=== PATIENT | male | born 1945 | race Caucasian/White ===

== ENCOUNTER 2016-04-16 14:57 | Observation (INO) | payer BC, MEDICARE ==
[2016-04-16 15:48] LABS: Hematocrit 45 % (42-52); Hemoglobin 15.4 g/dl (14.0-18.0); Mean Corpuscular HGB Conc 35 g/dl (31-36); Mean Corpuscular Hemoglobin 31 pg (27-31); Mean Corpuscular Volume 88 fL (80-94); Mean Platelet Volume 9 um3 (7.4-10.4); Red Blood Count 5.03 10^6/ul (4.0-5.4); Red Cell Distribution Width 13 % (10.5-15); White Blood Count 6.9 10^3/ul (3.5-10.8)
--- NOTE | 2016-04-16 16:00 | RAD ---
INDICATION: Syncope and confusion CT of the brain dated December 21, 2004 COMPARISON: CT of the brain dated December 21, 2004 TECHNIQUE: Contiguous axial sections of the brain were obtained from the skull base to the vertex without contrast. FINDINGS: The ventricles, cisterns and sulci mild involutional changes appropriate for the patient's age. The jones-white matter differentiation is adequately maintained and there is no sulcal effacement. No significant focal abnormality or mass effect is present. There is no evidence for intracranial hemorrhage. No significant focal osseous abnormality is present. The visualized portion of the paranasal sinuses and mastoid air cells appear clear. Incidental note is made of a large amount of cerumen nearly occluding the left external auditory canal. IMPRESSION: No acute intracranial abnormality.
[2016-04-16 16:06] LABS: Albumin 4.2 g/dL (3.2-5.2); EGFR African American 85.8 (>60); EGFR Non-African American 66.7 (>60); Globulin 2.8 g/dL (2-4); HDL Cholesterol 41.4 mg/dL; Potassium 3.6 mmol/L (3.5-5.0); Total Bilirubin 0.5 mg/dL (0.2-1.0)
--- NOTE | 2016-04-16 16:46 | RAD ---
INDICATION: Weakness COMPARISON: Similar chest x-ray March 22, 2004 TECHNIQUE: Single AP portable view of the chest was obtained. FINDINGS: Image quality is compromised due to the relative inferiority of a portable chest x-ray. The heart and mediastinum exhibit normal size and contour. The lungs are grossly clear. There is no evidence of a large pleural effusion. Visualized bones are normal for the patient's age. IMPRESSION: No radiographic evidence for acute cardiopulmonary abnormality on this portable chest x-ray.
[2016-04-16] MEDS ORDERED: Aspirin TAB* 325 MG PO ONE (17:04)
[2016-04-16] MEDS ORDERED: Iohexol 350* (CONTRAST) 500 ML MDV IV ONE (17:08)
[2016-04-16 17:59] LABS: TSH (Thyroid Stimulating Horm) 0.95 mcIU/mL (0.34-5.60)
[2016-04-16] MEDS ORDERED: Enoxaparin(*) 40 MG/0.4 ML SYR SUBCUT SCH (18:00)
--- NOTE | 2016-04-16 18:42 | RAD ---
CPT II: CPT II Codes: 3100F INDICATION: Altered mental status COMPARISON: Same day CT of the brain without contrast that did not show any acute abnormality TECHNIQUE: A CT angiogram of the head and neck was performed with 80 cc of Omnipaque 300. Contiguous axial sections were obtained from the thoracic inlet through the [place] of [place]. Images were reconstructed in the sagittal, coronal planes and in a 3-D volume rendered format. The distal cervical internal carotid artery diameter is used as the denominater for stenosis measurement. CTA NECK: The common and internal carotid arteries are patent without hemodynamically significant stenosis. Right: Below the carotid bifurcation the right common carotid artery measures 7 mm in luminal diameter. There is coarsely calcified atherosclerosis of the carotid bulb in the inferior most portion of the right internal carotid artery measures 5 mm in luminal diameter. This yields an approximate degree of stenosis of 29%. Left: The mid-level left common carotid artery exhibits eccentric noncalcified atherosclerosis from approximately the T1 level to the C6 level. At its narrowest portion the left internal carotid artery as a luminal diameter of 3 x 5 mm. The left carotid bulb exhibits relative aneurysmal dilatation measuring 1.2 cm in diameter before yielding a comparatively narrowed left internal carotid artery measuring 5 mm. The vertebral arteries are patent without gross abnormality. CTA of the brain: The internal carotid, anterior and middle cerebral arteries appear are patent without high grade stenosis or occlusion. Calcified atherosclerosis is seen at the petrous carotid arteries. The vertebral, basilar and posterior cerebral arteries appear patent without high grade stenosis or occlusion. The left posterior communicating artery appears to be absent. No focal luminal filling defect, aneurysm or vascular malformation is seen. IMPRESSION: 1. Partially calcified atherosclerosis at the left carotid bifurcation yields approximately 29% stenosis. 2. 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 3. No definite occlusions or filling defects are identified in the intracranial arteries.
--- NOTE | 2016-04-17 03:19 | HP ---
HISTORY AND PHYSICAL: DATE OF ADMISSION: 04/16/16 PRIMARY CARE PHYSICIAN: Dr. Bishop CHIEF COMPLAINT: Confusion. HISTORY OF PRESENT ILLNESS: Mr. Ko is a pleasant 71-year-old male with past medical history of asthma, eczema, prostate cancer, status post prostatectomy, who presents to the hospital at the urging of his after a prolonged episode of confusion and forgetfulness. History was obtained from the and the patient. The states initially that the patient's symptoms began around 11 a.m. this morning. They were both at home and he was planning on going to work. As he was leaving the house, he came back into the room and told her on 3 separate occasions that he was leaving to go to work, which she found odd. 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 He tried to read the paper, but was having difficulty with that and he continued to ask where their daughter was in the house, although she does not live with them. The patient states he did not feel "right" when he was driving back from work. After some more questioning at home, the patient's spoke with her family and decided to bring the patient into the hospital for further evaluation. The patient has apparently had short-term memory problems for about a year now, which they both agree has been worsening as of late. She states the patient typically does okay with "dementia testing." The patient has some anxiety, which occasionally can lead to some difficulty speaking, although they cannot recall any clear dysarthria. The patient denies any focal weakness. The patient does not recall much about today and on further questioning, cannot recall much about the past few days, although with prompting, he is able to recall certain details. The patient and his along with the rest of the family just recently returned from a 50th wedding anniversary in [place] [employer]. They returned on the and they state both of them had a "head cold with some congestion and cough " since returning. Apparently, the patient did have a subjective fever on the evening of 04/14/16, which he received some ibuprofen and some cold medicine for , and which seemed to improve the following day. PAST MEDICAL HISTORY: 1. Asthma. 2. Eczema. 3. Prostate cancer. PAST SURGICAL HISTORY: 1. Vasectomy. 2. Prostatectomy. HOME MEDICATIONS: None. ALLERGIES: The patient reports allergies to EGGS, PENICILLIN, and ATORVASTATIN led to some confusion. SOCIAL HISTORY: The patient lives in home with his . They have 7 children. 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 Denies any cigarette use or tobacco use. Has about 2 drinks per day. Denies any illicit drug use. FAMILY HISTORY: Significant for mother with TIA, sister with TIA, another sister with carotid artery disease, 2 brothers with CABG, and another brother with a stroke and a CABG. REVIEW OF SYSTEMS: Some limited diarrhea after coming back from [place]. Otherwise, a 12-point review of systems is negative except for that as noted in the HPI. PHYSICAL EXAMINATION GENERAL: The patient is a pleasant elderly man, lying in bed, in no apparent distress. VITAL SIGNS: On admission, temperature 98.7, heart rate of 72, respiratory rate of 16, O2 saturation 100% on room air, blood pressure 140/68. HEENT: Pupils are equal, round, and reactive to light and accommodation. Anicteric sclerae. Moist mucous membranes. No cervical adenopathy. CARDIOVASCULAR: Regular rate and rhythm. S1 and S2 present. No murmurs, gallops, or rubs. LUNGS: Clear to auscultation bilaterally. No wheezes, rales, or rhonchi. ABDOMEN: Soft, nontender, nondistended. Bowel sounds positive. EXTREMITIES: No cyanosis, clubbing, or edema. NEURO: The patient is alert, oriented to self, place, family, is unable to tell me the month, day of the week or the year. Cranial nerves II through XII are intact. Strength is 5/5 throughout both upper and lower extremities. Sensation is intact and symmetric bilaterally. The patient clearly continues to have some memory issues about his personal medical history along with the events in the past few days. Speech is clear. The patient could only remember 2/3 items in the short- term memory test. LABORATORY DATA/DIAGNOSTIC STUDIES: White blood cell count of 6.9, hematocrit of 45, platelets of 160, INR of 1.07. Sodium 128, potassium 3.6, chloride of 97 , carbon dioxide of 22, BUN of 12, creatinine 1.09, glucose of 103. Lactic acid of 0.8. LFTs within normal limits. Troponin of 0.00. LDL of 172. Noncontrast CT of the brain shows no acute intracranial abnormalities. Chest x - ray, personal review, shows no acute disease. ASSESSMENT AND PLAN: Confusion and memory loss in a 71-year-old male with past medical history of asthma, eczema, prostate cancer, status post prostatectomy, and some progressive short-term memory loss over the past year. 1. Confusion and memory loss. No clear etiology at this point. We will proceed with a stroke workup. I spoke with Neurology who will evaluate the patient tomorrow. We will get a CTA of the head and neck as well as an MRI and echocardiogram. We will recheck a fasting lipid profile in the morning. However, the patient's LDL on this nonfasting is elevated. We can discuss possible statin therapy with him as he has had adverse reactions in the past. We will check B12, ammonia, and a TSH for reversible causes of dementia. I suppose this could possibly be transient global amnesia as well on top of the patient's ongoing short- term memory loss over the past year. We will write him for a full-dose aspirin x1 in the ED and continue on daily 81 mg for now. Urinalysis is pending. 2. DVT prophylaxis. Lovenox subcu. 3. Code status: The patient is a full code. This was discussed with him and his and healthcare proxy, Renate. TIME SPENT: Total time spent on this admission 50 minutes with over half the time spent [id number] with the patient counseling and coordinating care. CC: Dr. Bishop * [id number]/[facility] #: [id number] REJI
[2016-04-17 04:25] LABS: Urine Bacteria Absent (Absent); Urine Bilirubin Negative (Negative); Urine Glucose Negative (Negative); Urine Nitrite Negative (Negative)
[2016-04-17 05:28] LABS: BUN/Creatinine Ratio 10.7 (8-20); Calcium 8.6 mg/dL (8.6-10.3); EGFR Non-African American 59.1 (>60); Potassium 3.5 mmol/L (3.5-5.0)
[2016-04-17 08:18] LABS: HDL Cholesterol 37.7 mg/dL
[2016-04-17] MEDS ORDERED: NS 0.9% 1000 ML* 1,000 ML IV SCH (08:30)
[2016-04-17] MEDS ORDERED: Aspirin Low Dose CHEW TAB* 81 MG PO SCH (09:00)
--- NOTE | 2016-04-17 10:29 | PN ---
Subjective Date of Service: 04/17/16 Interval History: Patient seen this morning after echo. Still seems a bit confused, particularly about the timeline leading up to this hospitalization. Says he had a problem last week with confusion/memory and was treated at this hospital which is incorrect, he later noted that he must be mistaken. Denies headache, fever, chills. Has been eating well. Some difficulty remembering/finding the words for what he had this morning for breakfast. Family History: Unchanged from Admission Social History: Unchanged from Admission Past Medical History: Unchanged from Admission Objective Active Medications: Aspirin (Aspirin Low Dose Tab*) 81 mg PO DAILY ANDREW Enoxaparin Sodium (Lovenox(*)) 40 mg SUBCUT Q24H ANDREW Sodium Chloride (Ns 0.9% 1000 Ml*) 1,000 mls @ 100 mls/hr IV PER RATE [facility] Vital Signs 04/16/16 04/16/16 04/16/16 18:03 19:37 20:00 Temperature 98.1 F 98.2 F Pulse Rate 68 64 Respiratory 16 16 Rate Blood Pressure 130/66 119/60 (mmHg) O2 Sat by Pulse 100 97 97 Oximetry 04/16/16 04/17/16 04/17/16 23:53 04:21 07:19 Temperature 98.8 F 98.3 F 99.0 F Pulse Rate 64 65 63 Respiratory 16 16 18 Rate Blood Pressure 138/73 139/69 113/62 (mmHg) O2 Sat by Pulse 100 99 96 Oximetry Oxygen Devices in Use Now: None Appearance: Elderly, M, sitting up in bed in NAD Eyes: No Scleral Icterus Ears/Nose/Mouth/Throat: Mucous Membranes Moist Neck: NL Appearance and Movements; NL JVP Respiratory: Symmetrical Chest Expansion and Respiratory Effort, Clear to Auscultation Cardiovascular: NL Sounds; No Murmurs; No JVD, RRR Abdominal: NL Sounds; No Tenderness; No Distention Lymphatic: No Cervical Adenopathy Extremities: No Edema Skin: No Rash or Ulcers Neurological: - - Alert, oriented to self and place, difficulty with time, CN II -XII intact, strength 5/5 throughout, sensation intact and symmetric Result Diagrams: 04/16/16 15:30 04/17/16 05:01 Assess/Plan/Problems-Billing Assessment: Confusion, memory impairment, retrograde amnesia in a 71 yo M with hx of asthma , prostate ca s/p prostatectomy - Patient Problems (1) Memory loss Current Visit: Yes Comment: confusion. ?TGA, TIA, dementia. 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 Echo done and pending read. MRI pending. Dr. Mckay to evaluate the patient, may consider EEG. B12, TSH and ammonia all WNL. (2) DVT prophylaxis Current Visit: Yes Comment: Lovenox (3) Full code status Current Visit: Yes
[2016-04-17 11:08] VITALS: BP 118/77
--- NOTE | 2016-04-17 12:35 | ECHO ---
Patient: SHERIDAN RICHARD [facility] Rec#: [id number] : 1945 Date: 04/17/2016 Age: 71y Height: 180.3 cm / 71.0 in Weight: 73 kg / 160.9 lbs Sex: M BSA: 1.92 Room#: [facility] Admit Date#: 04/16/2016 Type: Inpatient Referring: LUIS MARRUFO MD Reading: Agnieszka Zafar MD Certified Registered Nurse Anesthetist: Lolis Meyer RN RDCS CC: Dario Bishop MD Transthoracic Echocardiogram Indication: CVA BP: 138/73 HR: 65 Rhythm: NSR Findings History: Asthma, prostate cancer Technical Comments: The study quality is fair. Completed at 1015. Left Ventricle: The left ventricular chamber size is normal. Global left ventricular wall motion and contractility are within normal limits. There is normal left ventricular systolic function. The estimated ejection fraction is 55-60%. Abnormal left ventricular diastolic function is observed. Left Atrium: The left atrial chamber size is normal. Right Ventricle: The right ventricular chamber size and systolic function are within normal limits. Right Atrium: The right atrial cavity size is normal. Aortic Valve: The aortic valve leaflets are mildly thickened. There is a trace of aortic regurgitation. There is no evidence of aortic stenosis. Mitral Valve: The mitral valve leaflets are mildly thickened. There is trace to mild mitral regurgitation. There is no evidence of mitral stenosis. Tricuspid Valve: The tricuspid valve leaflets are normal. There is trace tricuspid regurgitation. Unable to estimate the right ventricular systolic pressure. Pulmonic Valve: The pulmonic valve structure is not well visualized. There is a trace pulmonic regurgitation. There is no pulmonic stenosis. Pericardium: There is no significant pericardial effusion. A pericardial fat pad is visualized. Aorta: There is no dilatation of the ascending aorta. There is no dilatation of the aortic arch. The aortic root is normal in size. Pulmonary Artery: The main pulmonary artery is not well visualized. Venous: The inferior vena cava appears normal in size. There is a greater than 50% respiratory change in the inferior vena cava dimension. Conclusions Global left ventricular wall motion and contractility are within normal limits. The estimated ejection fraction is 55-60%. The right ventricular chamber size and systolic function are within normal limits. Atria normal in size, no evidence of shunting across the atrial septum on 2D and color evaluation. Aortic valve sclerosis with trace of aortic regurgitation. There is trace to mild mitral regurgitation. There is trace tricuspid regurgitation. Unable to estimate the right ventricular systolic pressure. No cardioembolic source identified. No prior echo to compare. Measurements Name Value Normal Range RVDdMajor (2D) 3 cm (2.2 - 4.4) RAd ISD 4CH 4.8 cm (3.4 - 4.9) RA (A4C)W 3.7 cm (2.9 - 4.6) IVSd (2D) 0.8 cm (0.6 - 1) LVPWd (2D) 1 cm (0.6 - 1) LVIDd (2D) 4.2 cm (3.6 - 5.4) Aortic Annulus 2.2 cm (1.4 - 2.6) Ao root diameter (2D) 3.2 cm (2.1 - 3.5) Ascending Ao 3.3 cm (2.1 - 3.4) Aortic arch 2.6 cm (1.8 - 3.4) LA dimension (AP) 2D 2.6 cm (2.3 - 3.8) LAd ISD 4CH 4 cm (2.9 - 5.3) LA ISD 4CH W 3.9 cm (2.5 - 4.5) Name Value Normal Range LA ESV SP 4CH (A/L) 28 ml - LA ESV SP 2CH (A/L) 33 ml - LA ESV BP (A/L) 33 ml - LA ESV BP (A/L) index 17.2 ml/m2 - LA ESV SP 4CH (MOD) 26 ml - LA ESV SP 2CH (MOD) 29 ml - Name Value Normal Range MV E-wave Vmax 0.6 m/sec - MV deceleration time 346 msec - MV A-wave Vmax 0.71 m/sec - MV E:A ratio 0.84 ratio - LV septal e' Vmax 0.07 m/sec - LV lateral e' Vmax 0.07 m/sec - LV E:e' septal ratio 8.6 ratio - LV E:e' lateral ratio 8.6 ratio - Name Value Normal Range AV Vmax 1.1 m/sec - LVOT Vmax 1 m/sec - MONSE Vmax 0.57 m/sec - Name Value Normal Range IVC diameter 1.9 cm - Name Value Normal Range PV Vmax 0.93 m/sec -
--- NOTE | 2016-04-17 14:55 | RAD ---
Indication: Assess for CVA. Altered mental status. History of cancer. Comparison: Noncontrast CT head April 16, 2016 Technique: Fiixa 1.5 Valentine [id number] with GEM suite. MRI brain without contrast. Report: Diffusion series is negative for acute or subacute ischemia. Susceptibility series is negative for stigmata of hemosiderin deposition to indicate previous hemorrhage. Mild prominence of the cerebral sulci reflecting volume loss corresponding mild prominence of the lateral and third ventricles. Unremarkable fourth ventricle and basal cisterns. Normal variant mildly prominent perivascular spaces at the basal ganglia. A few low suspicion small T2 hyperintensities are noted in the subcortical white matter of the LEFT frontal lobe measuring 3 mm or smaller of doubtful clinical significance. Preserved major intracranial flow-voids. Unremarkable orbital contents. Mucosal thickening with complete opacification of the RIGHT maxillary sinus and partial opacification of the RIGHT ethmoid sinus. Mild mucosal thickening at the hypoplastic LEFT maxillary sinus. Negative for paranasal sinus fluid levels. Grossly clear mastoid air spaces. No suspicious calvarial or skull base lesion evident. IMPRESSION: 1. Mild involutional change. No evidence for acute or subacute ischemia or other acute intracranial process. 2. Paranasal sinus disease with complete opacification of the RIGHT maxillary sinus. Correlate with clinical assessment.
[2016-04-17 16:03] LABS: BUN/Creatinine Ratio 14.4 (8-20); Calcium 8.7 mg/dL (8.6-10.3); EGFR African American 78.3 (>60); EGFR Non-African American 60.9 (>60)
--- NOTE | 2016-04-17 19:18 | CONS ---
CONSULTATION REPORT: DATE OF CONSULTATION/DICTATION: 04/17/15 PATIENT OF: Dr. Bishop and Dr. Jimbo Elam. HISTORY OF PRESENT ILLNESS: This is a 71-year-old man being evaluated for an acute episode of confusion occurring yesterday. He has had a 1-year history of somewhat progressive short-term memory, although he had mental status testing where he tested normal. He has difficulty remembering things and he gets lost if he is in a new restaurant and he goes out a different store than he came in, which is unusual for him since he is both smart and a spatial type of person. Yesterday he had an acute symptom, different from what he had had in the past that began about 11 in the morning. He was going to go to work and he kissed his 3 separate times. He then drove to [place], could not turn on the computer and came back and was confused. He thought his daughter who lives away from them was around. He did not know where the dog was. He had some stuttering. He knew that things were off and that he had trouble driving home in terms of confusion. There was a little slight word finding difficulties, but he did not say any nonsense words and did not misspeak at all. He has had significant anxiety, which has been worse recently. He does not snore. PAST MEDICAL/SURGICAL HISTORY: He has a history of asthma, eczema, and prostate cancer, status post prostatectomy. He also has had a vasectomy. MEDICATIONS: He is on no medicines at home. ALLERGIES: He is allergic to EGGS, PENICILLIN. ATORVASTATIN has led to some confusion in the past. FAMILY HISTORY: He has a strong family history for cardiovascular disease in 4 siblings, but there is no history of dementia in the family. SOCIAL HISTORY: He lives with his . 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 He does not smoke, drink, or use drugs. He has 2 drinks per day. There is mother and sister with TIAs. REVIEW OF SYSTEMS: Negative in all 14 spheres other than the HPI. He has recently travelled to [place]. PHYSICAL EXAM: Temperature 98.9, pulse 61, respiratory rate 18, blood pressure 118/77. He is alert and oriented x3 with normal speech and comprehension. Cranial nerves II through XII were intact. Fundi were benign. Motor exam revealed normal tone, strength, and coordination. Gait and sensation intact to light touch. Reflexes 2 and equal, downgoing toes. Chest: Clear. Cardiovascular: Regular rate and rhythm without murmur. Abdomen: Soft with positive bowel sounds. DIAGNOSTIC STUDIES/LAB DATA: His CT scan showed no acute findings. His CTA showed a 20% to 30% stenosis in his left carotid bifurcation and some atheroma in his left carotid Labs include normal CBC, INR, PTT. Normal CMP, B12, thyroid except he had a sodium of 127 and creatinine of 1.2 today following the CTA. Yesterday his creatinine was 1.09. LDL was 163 fasting. His ammonia was 39. PLAN: I spoke to his at length and also his son-in-law and discussed that his anxiety is probably complicating the situation leading to perhaps some of his confusion by concern that he may have the very beginning of a mild dementia. At this point, I would aggressively treat the anxiety to see if there is indeed some short-term memory problems that are significant that remain after the anxiety is under better control, if so, we may at that point as an outpatient treat with Namenda or Aricept acutely. The issue is what the episode was yesterday. The differential would include TIA, which most likely transient global amnesia is possible but this does not sound typical for that. He was not oblivious to his confusion and expressed concern, which is sort of different for somebody with transient global amnesia, they are unaware that there is a problem. There may have been some stuttering and word finding issues also that would go more along the line of just a regular transient ischemic attack rather than a transient global amnesia. If his MRI scan does not show an acute abnormality that would prove that he had a stroke, then I would also recommend an EEG since it is possible that he had an unwitnessed seizure and was postictal. The whole episode at home lasted 15 or 20 minutes but there was the additional time that he was up at [employer], so it is hard to know how long the whole episode lasted. They agreed with treating with aspirin and statin at this point. Thank you for sharing his case. [id number]/[facility] #: [id number] REJI
--- NOTE | 2016-04-18 07:19 | DS ---
DISCHARGE SUMMARY: DATE OF ADMISSION: 04/16/16 DATE OF DISCHARGE: 04/17/16 PRIMARY CARE PHYSICIAN: Dr. Bishop. PRINCIPAL DISCHARGE DIAGNOSIS: TIA. SECONDARY DIAGNOSES: 1. Hyperlipidemia. 2. History of asthma. 3. History of prostate cancer. STUDIES DONE DURING HOSPITALIZATION: CT of the brain without contrast, impression: No acute intracranial abnormality. Chest x-ray, impression: No radiographic evidence for acute cardiopulmonary abnormality on this portable chest x-ray. MRI of the brain, impression: Mild involutional change. No evidence for acute or subacute ischemia or other intracranial process. Paranasal sinus disease with complete opacification in the right maxillary sinus, correlate with clinical assessment. CTA of the head and neck, impression: Partially calcified atherosclerosis at the left carotid bifurcation yields approximately 29% stenosis, long segment non - calcified atheroma of the left common carotid, narrows the lumen to a small as 3 mm in diameter. Above this there is relative aneurysmal dilatation of the carotid bulb measuring 1.2 cm in diameter, which could represent post-stenotic dilatation. No definite occlusions or filling defects are identified in the intracranial arteries. Echocardiogram, conclusions: Global left ventricular wall motion and contractility within normal limits. Ejection fraction of 55% to 60%. The right ventricular chamber size and systolic function are within normal limits. Atria normal in size. No evidence of shunting across the atrial septum. On 2-D and color evaluation, aortic valve sclerosis with trace aortic regurgitation. Trace to mild mitral regurgitation. Trace tricuspid regurgitation. Unable to estimate right ventricular systolic pressure. No cardioembolic source identified. No prior echo to compare. DISCHARGE MEDICATION REGIMEN: 1. Aspirin 81 mg by mouth daily. 2. Pravastatin 40 mg by mouth daily. 3. Cholecalciferol 1000 units by mouth daily. HISTORY OF PRESENT ILLNESS AND HOSPITAL SUMMARY: Please see my history and physical from 04/16/16 for full details. Briefly, Mr. Ko is a pleasant 71- year- old male with past medical history as above, who presented to the hospital with an episode of confusion and forgetfulness. This began around 11 a.m. the day of admission, and the patient was confused, asked the repetitive questions, was asking nonsensical questions, and perhaps having some difficulty reading the paper. This is in the setting of what seemed like more of a chronic short-term memory loss problem that the patient has been having. As noted above, CT of the head was negative. CTA of the head and neck did not show anything that is likely contributing to this presentation. MRI was largely negative aside from some small vessel disease. An EEG was also done, which has not been read at the time of this dictation, but I spoke with Dr. Mckay who read the EEG and he said it was normal. Echocardiogram also was within normal limits. It is felt that this could possibly be a TIA. The patient was started on the baby aspirin as he has had problems with Lipitor in the past. He was started on pravastatin. He will follow up with Dr. Mckay as well as his PCP, Dr. Bishop. At discharge, the patient is still slightly forgetful, however not nearly to the degree that he was having in the morning the day of admission. TIME SPENT: Total time spent on this discharge, 45 minutes. This is a summary of the hospitalization, please see the full medical record for further details. CC: Dr. Bishop; Dr. Mckay* [id number]/CPS #: [id number] MTDD
--- NOTE | 2016-04-18 14:10 | ED ---
Tamia Brooks Adam, scribed for Kwame Gonzalez MD on 04/16/16 at 1526 . Altered Mental Status - HPI Summary HPI Summary: A 71 y/o male presents to the ED with a one hour period of confusion two hours ago. Per , patient has been having increased confusion and memory loss over the past several days and has been evaluated for dementia in the past. He denies any SOB or chest pain currently. There is a FHx of TIAs. - History Of Current Complaint Chief Complaint: EDAltMentalStatus Stated Complaint: SYNCOPE Hx Obtained From: Patient, Family/Stream Control Officer - Onset/Duration: Resolved Timing: Intermittent - Resolved currently, Lasting Hours - One hour Severity Initially: Moderate Severity Currently: Mild Character: Confusion Aggravating Factor(s): Nothing Alleviating Factor(s): Other - Spontaneous resolution Associated Signs And Symptoms: Positive: Negative - Allergies/Home Medications Allergies/Adverse Reactions: Allergies Allergy/AdvReac Type Severity Reaction Status Date / Time Atorvastatin Allergy Altered Verified 04/16/16 17:13 Mental Status Eggs or Egg-derived Products Allergy Unknown Verified 07/17/13 10:21 Reaction Details Penicillins Allergy Hives Verified 04/16/16 17:13 PMH/Surg Hx/FS Hx/Imm Hx Infectious Disease History: Denies: Traveled Outside the [place] in Last 30 Days - Family History Known Family History: Positive: Cardiac Disease, Other - TIA, hypotension - Social History Occupation: Employed Part-time Lives: With Family Review of Systems Constitutional: Negative Negative: Fever, Chills Eyes: Negative Negative: Erythema ENT: Negative Negative: Sore Throat Cardiovascular: Negative Negative: Chest Pain Respiratory: Negative Negative: Shortness Of Breath, Cough Gastrointestinal: Negative Negative: Abdominal Pain, Vomiting, Nausea Genitourinary: Negative Negative: dysuria, hematuria Musculoskeletal: Negative Negative: Myalgia, Edema Skin: Negative Negative: Rash Neurological: Other - Confusion. negative: dizziness Psychological: Normal All Other Systems Reviewed And Are Negative: Yes Physical Exam - Summary Physical Exam Summary: NORMAL NEURO EXAM ADULT Constitutional: Well-developed, Well-nourished, Alert. (-) Distressed Skin: Warm, Dry HENT: Eyes: Conjunctiva normal Neck: Musculoskeletal ROM normal neck. (-) JVD, (-) Stridor, (-) Tracheal deviation Cardio: Rhythm regular, rate normal, Heart sounds normal; Intact distal pulses ; The pedal pulses are 2+ and symmetric. Radial pulses are 2+ and symmetric. (- ) Murmur Pulmonary/Chest wall: Effort normal. (-) Respiratory distress, (-) Wheezes, (-) Rales Abd: Soft. (-) Tenderness, (-) Distension, (-) Guarding, (-) Rebound Musculoskeletal: (-) Edema Lymph: (-) Cervical adenopathy Neuro: Alert, Oriented x3, Strength normal, Cranial nerves II-XII are grossly intact. (-) Dysmetria, (-) Nystagmus, (-) Ataxia by finger to nose testing, (-) Sensory deficit. No pronator drift, speech fluent/clear Psych: Mood and affect Normal Vital Signs On Initial Exam: Initial Vitals Temp Pulse Resp BP Pulse Ox 98.7 F 72 16 140/68 100 04/16/16 14:59 04/16/16 14:59 04/16/16 14:59 04/16/16 14:59 04/16/16 14:59 Diagnostics - Vital Signs Vital Signs Temp Pulse Resp BP Pulse Ox 04/16/16 14:59 98.7 F 72 16 140/68 100 - Laboratory Lab Results: Lab Results 04/16/16 04/16/16 04/16/16 Range/Units 15:30 15:30 15:30 WBC 6.9 (3.5-10.8) 10^3/ul RBC 5.03 (4.0-5.4) 10^6/ul Hgb 15.4 (14.0-18.0) g/dl Hct 45 (42-52) % MCV 88 (80-94) fL MCH 31 (27-31) pg MCHC 35 (31-36) g/dl RDW 13 (10.5-15) % Plt Count 160 (150-450) 10^3/ul MPV 9 (7.4-10.4) um3 Neut % (Auto) 70.9 (38-83) % Lymph % (Auto) 15.5 L (25-47) % [place] % (Auto) 12.4 H (1-9) % Eos % (Auto) 0 (0-6) % Baso % (Auto) 1.2 (0-2) % Absolute Neuts (auto) 4.9 (1.5-7.7) 10^3/ul Absolute Lymphs (auto) 1.1 (1.0-4.8) 10^3/ul Absolute Monos (auto) 0.9 H (0-0.8) 10^3/ul Absolute Eos (auto) 0 (0-0.6) 10^3/ul Absolute Basos (auto) 0.1 (0-0.2) 10^3/ul Absolute Nucleated RBC 0 10^3/ul Nucleated RBC % 0 INR (Anticoag Therapy) 1.07 (0.89-1.11) APTT 33.6 (26.0-36.3) seconds Sodium 128 L (133-145) mmol/L Potassium 3.6 (3.5-5.0) mmol/L Chloride 97 L (101-111) mmol/L Carbon Dioxide 22 (22-32) mmol/L Anion Gap 9 (2-11) mmol/L BUN 12 (6-24) mg/dL Creatinine 1.09 (0.67-1.17) mg/dL Est GFR ( Amer) 85.8 (>60) Est GFR (Non-Af Amer) 66.7 (>60) BUN/Creatinine Ratio 11.0 (8-20) Glucose 103 H (70-100) mg/dL Lactic Acid (0.5-2.0) mmol/L Calcium 9.0 (8.6-10.3) mg/dL Total Bilirubin 0.50 (0.2-1.0) mg/dL AST 39 (13-39) U/L ALT 19 (7-52) U/L Alkaline Phosphatase 50 (34-104) U/L Troponin I 0.00 (<0.04) ng/mL Total Protein 7.0 (6.4-8.9) g/dL Albumin 4.2 (3.2-5.2) g/dL Globulin 2.8 (2-4) g/dL Albumin/Globulin Ratio 1.5 (1-3) Triglycerides 93 mg/dL Cholesterol 232 mg/dL LDL Cholesterol 172 mg/dL HDL Cholesterol 41.4 mg/dL Vitamin B12 329 (180-914) pg/mL TSH 0.95 (0.34-5.60) mcIU/mL Blood Type Antibody Screen 04/16/16 04/16/16 Range/Units 15:30 15:30 WBC (3.5-10.8) 10^3/ul RBC (4.0-5.4) 10^6/ul Hgb (14.0-18.0) g/dl Hct (42-52) % MCV (80-94) fL MCH (27-31) pg MCHC (31-36) g/dl RDW (10.5-15) % Plt Count (150-450) 10^3/ul MPV (7.4-10.4) um3 Neut % (Auto) (38-83) % Lymph % (Auto) (25-47) % Massac % (Auto) (1-9) % Eos % (Auto) (0-6) % Baso % (Auto) (0-2) % Absolute Neuts (auto) (1.5-7.7) 10^3/ul Absolute Lymphs (auto) (1.0-4.8) 10^3/ul Absolute Monos (auto) (0-0.8) 10^3/ul Absolute Eos (auto) (0-0.6) 10^3/ul Absolute Basos (auto) (0-0.2) 10^3/ul Absolute Nucleated RBC 10^3/ul Nucleated RBC % INR (Anticoag Therapy) (0.89-1.11) APTT (26.0-36.3) seconds Sodium (133-145) mmol/L Potassium (3.5-5.0) mmol/L Chloride (101-111) mmol/L Carbon Dioxide (22-32) mmol/L Anion Gap (2-11) mmol/L BUN (6-24) mg/dL Creatinine (0.67-1.17) mg/dL Est GFR ( Amer) (>60) Est GFR (Non-Af Amer) (>60) BUN/Creatinine Ratio (8-20) Glucose (70-100) mg/dL Lactic Acid 0.8 (0.5-2.0) mmol/L Calcium (8.6-10.3) mg/dL Total Bilirubin (0.2-1.0) mg/dL AST (13-39) U/L ALT (7-52) U/L Alkaline Phosphatase (34-104) U/L Troponin I (<0.04) ng/mL Total Protein (6.4-8.9) g/dL Albumin (3.2-5.2) g/dL Globulin (2-4) g/dL Albumin/Globulin Ratio (1-3) Triglycerides mg/dL Cholesterol mg/dL LDL Cholesterol mg/dL HDL Cholesterol mg/dL Vitamin B12 (180-914) pg/mL TSH (0.34-5.60) mcIU/mL Blood Type O Positive Antibody Screen Negative Result Diagrams: 04/16/16 15:30 04/17/16 15:40 Lab Statement: Any lab studies that have been ordered have been reviewed, and results considered in the medical decision making process. - CT Brain CT Interpretation: No Acute Changes CT Interpretation Completed By: Radiologist Altered Mental Statu Course/Dx - Course Course Of Treatment: Intention to admit for rule out TIA. Pending labs and imaging. Dr. Elam aware of patient. Assessment/Plan: tia vs dementia - Diagnoses Discharge Diagnoses: TIA (transient ischemic attack) Discharge - Discharge Plan Condition: Good Disposition: ADMITTED TO [facility] Disposition Comment: Signed out to Dr. Alvarado - pending labs and brain CT The documentation as recorded by the Tamia petit Adam accurately reflects the service I personally performed and the decisions made by , Kwame Gonzalez MD.
--- NOTE | 2016-04-21 09:40 | EEG ---
ELECTROENCEPHALOGRAPHY: DATE: 04/20/2016. PATIENT OF: Dr. Bishop.* CLINICAL PROBLEM: This is a 71-year-old man being evaluated for an episode of confusion. This study was done to evaluate seizures. MEDICINES: None listed. REPORT: With the patient awake, background cerebral activity consisted of moderate amplitude, posterior dominant, 8-9 Hz rhythm. Photic stimulation does not activate the record. The patient never falls asleep. No epileptiform potentials, focal abnormalities or major asymmetries of background are noted. CLINICAL IMPRESSION: This awake EEG is within normal limits. [id number]/CPS #: [id number] [facility]
== END 2016-04-17 15:28 | disposition home or self-care (01) ==
LOC: ED 14:57 → MEDTELE 16:00
PROVIDERS: ADMIT Hospitalist; ATTEND Hospitalist
DX: G45.9 Transient cerebral ischemic attack, unspecified (principal); E78.5 Hyperlipidemia, unspecified; Z85.46 Personal history of malignant neoplasm of prostate; J45.909 Unspecified asthma, uncomplicated; Z88.0 Allergy status to penicillin; R41.3 Other amnesia
CPT/HCPCS: 36415; 70450; 70496; 70498; 70551; 71010; 80048; 80053; 80061; 81003; 81015; 82140; 82607; 83605; 84443; 84484; 85025; 85610; 85730; 86850; 86900; 86901; 93005; 93306; 95819; 96372; 99284; A9270-GY; G0378; J1650; Q9967

== ENCOUNTER 2017-04-25 15:36 | Observation (INO) | payer MEDICARE, BC ==
--- NOTE | 2017-04-25 16:31 | RAD ---
INDICATION: Confusion COMPARISON: MRI brain April 17, 2016; CT brain April 16, 2016 TECHNIQUE: Noncontrast axial source images were acquired from the skull base to the vertex. FINDINGS: Ventricles/sulci: There is mild age-related cortical atrophy with compensatory dilatation of the CSF spaces. Brain parenchyma: There is no focal parenchymal finding, evidence of intracranial mass, or intracranial mass effect. Intracranial hemorrhage:None. Extra-axial spaces: There are no abnormal extra axial fluid collections or evidence of extra-axial mass. Calvarium: There is no calvarial fracture or other calvarial abnormality. Scalp: There is no evidence of scalp or extracalvarial soft tissue abnormality. 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 Other: None. IMPRESSION: No acute intracranial findings. Right-sided sinusitis, unchanged
[2017-04-25 16:57] LABS: ABS Basophils 0.1 10^3/ul (0-0.2); ABS Eosinophils 0.1 10^3/ul (0-0.6); ABS Lymphocytes 1.6 10^3/ul (1.0-4.8); ABS Monocytes 0.6 10^3/ul (0-0.8); ABS Neutrophils 8.8 10^3/ul (1.5-7.7); ABS Nucleated RBC 0 10^3/ul; Hematocrit 45 % (42-52); Hemoglobin 15.5 g/dl (14.0-18.0); Lymphocyte % 14.1 % (25-47); Mean Corpuscular HGB Conc 34 g/dl (31-36); Mean Corpuscular Hemoglobin 31 pg (27-31); Mean Corpuscular Volume 90 fL (80-94); Mean Platelet Volume 9 um3 (7.4-10.4); Nucleated Red Blood Cells % 0.1; Platelet Count 228 10^3/ul (150-450); Red Blood Count 5.01 10^6/ul (4.0-5.4); Red Cell Distribution Width 13 % (10.5-15); White Blood Count 11.2 10^3/ul (3.5-10.8)
--- NOTE | 2017-04-25 17:03 | RAD ---
INDICATION: Confusion COMPARISON: April 16, 2016 TECHNIQUE: An AP portable view obtained at 1628 hours is submitted. FINDINGS: Bones/Soft Tissues: There are no acute bony findings. Cardiomediastinal: The cardiomediastinal silhouette is normal. Lungs: There are no infiltrates. Pleura: There are no pleural effusions. Other: None IMPRESSION: NO ACTIVE DISEASE
[2017-04-25 17:13] LABS: EGFR Non-African American 64.4 (>60)
[2017-04-25] MEDS ORDERED: NS 0.9% 1000 ML* 1,000 ML IV ONE (17:40)
--- NOTE | 2017-04-25 18:15 | ED ---
Berta Brooks Gabriel, scribed for Maikel Wagner MD on 04/25/17 at 1555 . Neurological HPI - HPI Summary HPI Summary: This patient is a 72 year old M presenting to [facility] accompanied by his daughter with a chief complaint of a possible CVA at 12:30. Patient denies double vision , numbness, and tingling. Patient states he went to the hospital (meant dentist ) to get his teeth cleaned but does not recall the procedure. He is aware of his confusion and says he found himself wandering around. His daughter recalls the call she got from the dentist who said that the patient said he didnt feel well at the end of his teeth cleaning and was later seen wandering outside the office till 1530. The patient is currently confused but ambulates without difficulty. Pt has history of forgetfulness. - History of Current Complaint Chief Complaint: EDNeurologicalDeficit Stated Complaint: STROKE-LIKE SYMPTOMS Last Known Well Date: 04/25/17 12:30 Hx Obtained From: Patient Onset/Duration: Gradual Onset, Still Present Timing: Constant Onset Severity: Mild Current Severity: Mild Pain Intensity: 0 Pain Scale Used: 0-10 Numeric Character: Confusion - Allergy/Home Medications Allergies/Adverse Reactions: Allergies Allergy/AdvReac Type Severity Reaction Status Date / Time Atorvastatin Allergy Altered Verified 04/16/16 17:13 Mental Status Eggs or Egg-derived Products Allergy Unknown Verified 07/17/13 10:21 Reaction Details Penicillins Allergy Hives Verified 04/16/16 17:13 Home Medications: Home Medications Escitalopram (NF) [Lexapro 20 mg (NF)] 20 mg PO DAILY 04/25/17 [History Confirmed 04/25/17] Memantine XR CAP* [Namenda XR CAP*] 28 mg PO DAILY 04/25/17 [History Confirmed 04/25/17] PMH/Surg Hx/FS Hx/Imm Hx Cardiovascular History: Reports: Hx Hypercholesterolemia Denies: Hx Pacemaker/ICD GI History: Reports: Other GI Disorders - rectal bleeding, colonoscopy Sensory History: Reports: Hx Contacts or Glasses, Hx Hearing Problem Denies: Hx Hearing Aid Opthamlomology History: Reports: Hx Contacts or Glasses Neurological History: Reports: Other Neuro Impairments/Disorders - forgetfulness Psychiatric History: Reports: Hx Anxiety Denies: Hx Panic Disorder - Cancer History Cancer Type, Location and Year: prostate cancer - Surgical History Surgery Procedure, Year, and Place: colonoscopy, prostate removal, R arm artery and nerve repair Hx Anesthesia Reactions: No Infectious Disease History: No Infectious Disease History: Denies: Traveled Outside the [place] in Last 30 Days - Family History Known Family History: Positive: Cardiac Disease, Other - TIA, hypotension - Social History Occupation: Retired Alcohol Use: Daily Alcohol Amount: 1 glass of wine and 1gin and tonic daily Substance Use Type: Reports: None Smoking Status (MU): Never Smoked Tobacco Review of Systems Negative: Blurred Vision Neurological: Negative - numbness, tingling Positive: Other - confusion All Other Systems Reviewed And Are Negative: Yes Physical Exam Triage Information Reviewed: Yes Vital Signs On Initial Exam: Initial Vitals Temp Pulse Resp BP Pulse Ox 97.2 F 65 19 150/93 100 04/25/17 15:37 04/25/17 15:37 04/25/17 15:37 04/25/17 15:37 04/25/17 15:37 Vital Signs Reviewed: Yes Appearance: Positive: Well-Appearing, No Pain Distress Skin: Positive: Warm Eyes: Positive: EOMI ENT: Positive: Normal ENT inspection Neck: Positive: Nontender Respiratory/Lung Sounds: Positive: Clear to Auscultation, Breath Sounds Present Cardiovascular: Positive: RRR. Negative: Murmur Abdomen Description: Positive: Nontender Neurological: Positive: Sensory/Motor Intact, Alert, Oriented to Person Place, Time, CN Intact II-III, Normal Gait, Speech Normal Psychiatric: Positive: Normal - Victor Coma Scale Best Eye Response: 4 - Spontaneous Best Motor Response: 6 - Obeys Commands Best Verbal Response: 5 - Oriented Diagnostics - Vital Signs Vital Signs Temp Pulse Resp BP Pulse Ox 04/25/17 15:37 97.2 F 65 19 150/93 100 - Laboratory Result Diagrams: 04/25/17 16:30 04/25/17 16:30 Lab Statement: Any lab studies that have been ordered have been reviewed, and results considered in the medical decision making process. - Radiology CXR Radiology Interpretation Completed By: Radiologist - No acute disease. ED physician has reviewed this report. - CT CT brain CT Interpretation Completed By: Radiologist - No acute intracranial findings. Right-sided sinusitis, unchanged. ED physician has reviewed this report. - EKG 16:01 Cardiac Rate: NL EKG Rhythm: Sinus Rhythm - at 66 BPM EKG Interpretation: No STEMI EKG Comparison: No Significant Change - in comparison to EKG from 04/16/16 NIH Scale - NIH Scale Level of Consciousness: Alert/Keenly Responsive Ask Patient the Month and His/Her Age: One Correct/Not Aphasic Ask Pt to Open/Close Eyes and Manager Practice/Release Non-Paretic Hand: Both Correctly Best Gaze (Only Horizontal Eye Movement): Normal Visual Field Testing: No Visual Loss Facial Paresis-Pt to Smile & Close Eyes or Grimace Symmetry: Normal/Symmetrical Motor Function - Right Arm: No Drift-Holds 10 Seconds Motor Function - Left Arm: No Drift-Holds 10 Seconds Motor Function - Right Leg: No Drift-Holds 10 Seconds Motor Function - Left Leg: No Drift-Holds 10 Seconds Limb Ataxia-Must be out of Proportion to Weakness Present: Absent Sensory (Use Pinprick to Test Arms/Legs/Trunk/Face): Normal Best Language (Describe Picture, Name Items): No Aphasia Dysarthria (Read Several Words): Normal Extinction and Inattention: No Abnormality - the patient has baseline dementia, and per son in law Dr Segura, and daughter they feel his answers are baseline for him. Total Score: 1 Course/Dx - Course Course Of Treatment: 72 yr old with baseline dementia who answered his age as 70 instead of 72, and NIH scale of 1, last well known time about noon today. Do not feel he is a code Crain and Dr Segura his son in law concurrs. Will do metabolic infectious work up. Dr Segura has consulted Dr Cruz from Neurology to see the patient and he has called the hospitalist to admit the patient. - Diagnoses Provider Diagnoses: Confusion, Hypertension, Sinusitis Discharge - Discharge Plan Condition: Good Disposition: ADMITTED TO [facility] Referrals: Dario Bishop MD [Primary Care Provider] - The documentation as recorded by the Berta petit Gabriel accurately reflects the service I personally performed and the decisions made by me, Maikel Wagner MD.
--- NOTE | 2017-04-25 19:42 | RAD ---
INDICATION: Carotid stenosis COMPARISON: CTA head and neck April 16, 2016 TECHNIQUE: Transverse and longitudinal scans of the carotid and vertebral arteries were performed with jones scale, color Doppler, and spectral Doppler imaging. Stenosis criteria is based on flow velocities that correlate with visual internal carotid artery diameter (NASCET criteria) FINDINGS: Right carotid: There is mild plaque involving the bifurcation. There is no spectral broadening. The peak systolic velocity of the internal carotid artery is 103 cm/s and the peak diastolic velocity 34 cm/s. The ICA/CCA ratio is calculated at 1.0. This corresponds to a less than 50% diameter stenosis. Left carotid: There is scant plaque involving the bifurcation. There is no spectral broadening. The peak systolic velocity of the internal carotid artery is 171 cm/s and the peak diastolic velocity 32 cm/s. The ICA/CCA ratio is calculated at 1.1. This corresponds to a less than 50% diameter stenosis. Right vertebral: Right vertebral waveforms are normal and the flow is antegrade. Left vertebral: Left vertebral waveforms are normal and the flow is antegrade. IMPRESSION: NO EVIDENCE OF A HEMODYNAMICALLY SIGNIFICANT STENOSIS. CPT II Codes: 3100F [facility]
[2017-04-25 21:06] LABS: Urine Appearance Clear; Urine Blood Negative (Negative); Urine Color Yellow; Urine Ketones 1+ (Negative); Urine Protein Negative (Negative); Urine Specific Gravity 1.017 (1.010-1.030); Urine Urobilinogen Negative (Negative)
--- NOTE | 2017-04-25 21:18 | RAD ---
INDICATION: Confusion COMPARISON: CT brain April 25, 2017; MRI brain April 17, 2016 TECHNIQUE: sagittal T1 FLAIR, axial diffusion, axial T1 FLAIR, axial T2, axial T2 FLAIR, and SWI images were acquired. FINDINGS: Craniocervical junction: The craniocervical junction appears normal. Ventricles/sulci: The ventricles and cisterns are normal in size and configuration for age. There are moderate age-related Brain parenchyma: There are no focal parenchymal abnormalities. There is no evidence of intracranial mass or mass effect. The diffusion weighted images show no evidence of acute ischemia. Intracranial hemorrhage: There is no intracranial hemorrhage. Extra-axial spaces: There are no extra-axial fluid collections or masses. Orbits: There are no MR abnormalities of the orbital structures. Paranasal sinuses/mastoid: There are chronic findings of sinusitis. The right maxillary antrum is completely opacified. The left maxillary antrum shows circumferential mucoperiosteal thickening and is hypoplastic. There is ethmoid sinus disease There is prominence of the nasal turbinates. Consider nonemergent CT imaging of the paranasal sinuses as indicated. Vascular: No abnormalities are seen. Other: None IMPRESSION: NO ACUTE INTRACRANIAL FINDINGS. MODERATE CORTICAL INVOLUTIONAL CHANGES. SINUSITIS.
[2017-04-25] MEDS: Heparin VIAL(*) 5000 UNITS/ML VIAL (FIVE THOUSAND) SUBCUT SCH (21:50)
--- NOTE | 2017-04-25 21:56 | CONS ---
CC: Dario Bishop MD; Enrike Mckay MD * CONSULTATION REPORT: DATE OF CONSULT: 04/25/17 REASON FOR CONSULT: Acute confusional episode. REQUESTING PRACTITIONER: Leti Trejo NP HISTORY OF PRESENT ILLNESS: Lasha Ko is a 72-year-old gentleman with 2- year history of cognitive decline and previous admission for confusion a year ago, who now presents with another episode of confusion. This morning, he was to go to the dentist and his went over with him where he was to drive and where he was to go. He indicates at this time that he drove to go to the dentist and he remembers walking by and it seemed almost random that he went in to have his teeth done almost as if he had forgotten he was supposed to get it done. He cannot give details of having it done. He varied his story during today's visit indicating he was in there twice. What is clear is that he left the dental office at about 12:30 and at 3 o'clock they found him wandering, still looking for his car. He at baseline can repeat himself, though it was not clear that he was repeating himself over and over again. On this visit, there has been no clear focalities. No chest pain, chest pressure, or shortness of breath. No numbness or weakness of arms or legs. Mr. Ko seemed to confabulate and tell the story in different ways when asked about what happened. His indicates the cognitive decline goes back about 2 years. At first, they attributed it to stress and felt that he would get better once he retired and also worried about the stress of fdc and depression. He is treated with Lexapro. In April 2016, he was admitted for acute confusional episode described in the consultation notes where he had unusual behavior, had difficulty remembering how to turn on a computer, got confused to the location of his daughter and dog , kissed his several times. At that time, he had an MRI with involutional change, EEG which was normal. CT of the brain and neck which showed long narrowing with atherosclerosis of the left common carotid and I will refer you to the report for details. He since that time is followed with Dr. Mckay and has been put on 2 Namenda and the question of a growing dementia has been raised. PAST MEDICAL HISTORY: Includes: 1. Depression. 2. Cognitive decline, questioned to be dementia. 3. Prostate cancer with prostatectomy. 4. Remote history of eczema. 5. History in the past of asthma. PAST SURGICAL HISTORY: Previous surgeries, not only prostatectomy, but also vasectomy. MEDICATIONS: His medications at home include: 1. Lexapro 20 mg p.o. daily. 2. Namenda XR 28 mg p.o. daily. 3. Vitamin D p.o. daily. 4. Aspirin 81 mg p.o. daily. ALLERGIES: Include an allergy to PENICILLIN which causes hives, EGG WHITES and listed is also an allergy to ATORVASTATIN which he felt had led to some confusion. This was listed in the chart. FAMILY HISTORY: There is no family history of dementia. There is a family history of mother at 93 with some memory problems, albeit they attributed this to old age and was nothing significant per their report. History of migraines. Father with history of lung cancer. Two sisters with epilepsy and anxiety in the family. 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 He on today's visit indicated he had retired 2 months ago; however, he actually retired last April. He also had difficulty telling me the name of the department and talked around it, first talking about food science and then talking on soil and water management. He does not smoke. He does drink alcohol usually 3 to 4 nights a week, he will have a small glass of wine that can be topped off. There has been no illicit drug use. PHYSICAL EXAMINATION: On examination today, Mr. Dalys blood pressure was 137 /79, his pulse was 68, respiratory rate was 17, saturation was 97%, temperature was 97.2, his blood pressure is 137/79. He had a regular cardiac rhythm. His lungs were clear to auscultation. There was no evidence of peripheral edema. He had good peripheral pulses in his feet. There was no petechiae or rash noted. He was awake, engaging, but often looked to his for answers. He did not know the year. He knew it was April and he knew the President. He had to guess his age for 70, then 71 and 72. He had difficulty naming the department, he had incorrect when he retired. Pupils were equal and responsive to light. His fundi were flat. He had full extraocular movements with no nystagmus. No saccadic intrusions. His facial expression, sensation and hearing were equal. Palate was upgoing. Tongue was midline. Sterno- cleidomastoid and trapezius were 5/5 in strength. There was normal bulk and tone. No pronator drift. Full strength in the upper and lower extremities with normal mevzbi-rt-ptbv and wlvs-wo-vaqo movements with the exception of the right hand where he had atrophy of the ulnar intrinsic muscles and weakness and abduction felt secondary to previous trauma. Ulnar muscles were weak at about 4 -/5. Vibration sensation was hard to feel at the toes, decreased at the ankles by approximately 10 to 15 seconds. Proprioception was intact. There was no clear asymmetry to pinprick, cold or light touch. Reflexes were 2+ and symmetric with exception of the knees which were slightly brisk. Toes were flexor response. He had normal dgezts-hs-iwok and yaog-ug-dhvd movements. His Romberg was negative. He was able to walk a few steps, walk on his heels and toes. LABORATORY DATA/DIAGNOSTIC STUDIES: Recent results include a CBC with white count of 11.2, absolute neutrophils were 8.8. INR was within normal limits. Complete metabolic panel showed chloride that was low at 100, but was otherwise within normal limits. TSH was 1.57. Serum alcohol was less than 10. His chest x-ray showed no new infiltrate. His CT of the brain again showed evidence of atrophy similar to what was previously noted on MRI, it is hard to compare modalities. His ventricles were rounded. There was again evidence of right-sided sinusitis noted to be unchanged. There was no clear new focality noted. IMPRESSION: Mr. Ko is a 72-year-old gentleman with 2 years of cognitive decline with acute confusional episode in April of last year and a repeat one occurring today, which was clearly abnormal with about 2-1/2 hours lost while he was wandering for car and did not ask for help. This is abnormal. Also on today's visit, for a [employer] professor who just recently retired, it is very unusual that he could not come up with the name of his department and had to talk around it and confabulate. He was off on his age. He could not remember the year and even the day of the fdc he was incorrect. One must question if we are dealing with a neurodegenerative dementia given the progression over the last 2 years. The question is whether there is a superimposed event causing this acute decline. I agree with admission and obtaining MRI of the brain to look for any new lesion as well as to compare to previous. We will check an EEG. Certainly, subclinical seizures can add to confusion and he does have a family history of 2 sisters with epilepsy. Previous carotid evaluation with CT of the brain and neck did show a long narrowing in the left common carotid we are checking carotid Dopplers and fasting lipid profile. Further workup may be needed. He will be monitored on telemetry. Further workup if an ischemic lesion is noted should be performed. Education was given on today's visit and I did talk about the fact that at this point he should not drive given the confusion that has been noted. This can be reassessed at a future date as an inpatient or outpatient. TIME SPENT: Over an hour was spent in direct patient care in addition to review of records. All questions were answered. [id number]/[facility] [place] #: [id number] REJI
--- NOTE | 2017-04-25 23:36 | HP ---
CC: Dario Bishop MD; Enrike Mckay MD * HISTORY AND PHYSICAL: DATE OF ADMISSION: 04/25/17 PRIMARY CARE PROVIDER: Dario Bishop MD ATTENDING PHYSICIAN: Aggie Saavedra DO * (dictated by Germania William NP). CHIEF COMPLAINT: Confusion. HISTORY OF PRESENT ILLNESS: Mr. Ko is a 72-year-old male with past medical history significant for dementia, hyperlipidemia, prostate cancer, and depression, who was in his usual state of health this morning when he left his house and went to a dentist appointment. The patient's reports giving him directions on how to get to the dentist. She states at approximately 11:45, there was a call from the dentist's office reminding him that he had appointment at 11:30. She called the dentist's office between 12:00 and 12:30, and the dentist reported that he had completed his dental cleaning and that they reported he was acting okay. The patient then left the dentist's office and wandered around until approximately 3 p.m. when the dentist noticed that he had been out there wandering around and had him come inside and they called his daughter, who came to get him. It is to note that approximately a year ago in April, the patient had an episode of prolonged confusion and forgetfulness where the patient's symptoms began early in the morning and he was planning to go to work. He came back into the room on 3 separate occasions saying that he was going to leave for work, which the felt was odd. He then drove to [place] where he worked and came back a few hours later and his noted that he seemed disoriented and was asking nonsensical questions. He tried to read a paper, but was unable to. He had asked where his daughter was, who does not live with them. The patient stated he did feel right and they decided then to bring him in. He had a TIA workup that essentially was negative. He had been following with Neurology and was started on Namenda. The patient denies any recent cold symptoms such as fevers, chills, chest pain, shortness of breath, cold. He does report a nasal congestion, but reports that he often has nasal congestion. He denies any sinus pain or tenderness. His reports that over the last 2 years, his memory has seemed to diminish and he is easily distracted. When his memory issues were first noticed approximately 2 years ago , it was felt that it was secondary to the stress of his job. Due to his symptoms today, he presented to the emergency room for further evaluation. While in the emergency room, the patient had a brain CT showing no acute findings, although it did show a right-sided sinusitis that is unchanged from 2017. He had chest x-ray showing no active disease and EKG without significant findings. He had fairly unremarkable labs and mild leukocytosis of 11.2. Due to the patient's symptoms, the hospitalists were asked to evaluate the patient for admission. PAST MEDICAL HISTORY: 1. Hyperlipidemia. 2. Dementia. 3. Prostate cancer. 4. Depression. 5. Eczema. PAST SURGICAL HISTORY: 1. Status post bilateral cataract extractions. 2. Status post prostatectomy. 3. Status post right arm ulnar nerve and artery repair. 4. Status post vasectomy. HOME MEDICATIONS: Include: 1. Lexapro 20 mg oral daily. 2. Vitamin D 1000 units oral daily. 3. Namenda XR 28 mg oral daily. 4. Aspirin 81 mg oral daily. ALLERGIES: PENICILLIN, EGGS, and ATORVASTATIN. FAMILY HISTORY: The patient has 2 sisters with history of epilepsy. The patient's mother passed at age 93 with history of memory issues. He denies any family history of heart disease or diabetes. His father had a history of lung cancer. The patient has a history of a brother with history of a CABG and another brother with a history of CVA and CABG. SOCIAL HISTORY: The patient does not smoke. He drinks 1 glass of wine approximately 4 times weekly. He denies recreational drugs. 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 He lives with his . His , Renate Ko, will be his surrogate decision maker in the event he is unable to make decisions for himself. REVIEW OF SYSTEMS: I performed an 11-point review of systems. All the pertinent positives and negatives are mentioned in the history of present illness. The remaining review of systems was negative. PHYSICAL EXAMINATION GENERAL APPEARANCE: The patient is alert, pleasant, appears to be in no acute distress. VITAL SIGNS: Temperature 97.2, heart rate 65, respiratory rate 19, O2 sat 100% on room air, blood pressure 150/93. HEENT: Normocephalic, atraumatic. Pupils are equal and reactive to light. Extraocular movements are intact. RESPIRATORY: There is no accessory muscle use. Lungs are clear to auscultation bilaterally. CARDIOVASCULAR: Regular rate and rhythm. S1 and S2 present. There are no murmurs, rubs or gallops heard. ABDOMEN: Soft, nontender, nondistended. There are bowel sounds present x4. EXTREMITIES: There is no lower extremity edema. DP and pulses are 2+ and symmetric. MUSCULOSKELETAL: There is no clubbing or cyanosis noted. The patient exhibits good strength in all extremities. NEUROLOGICAL: The patient is alert and oriented to person. He states that the hospital is the one [place], he is unsure of the name. He is unsure of the year. He knows that it is April. His smile is symmetric. His tongue is midline. Cranial nerves II through XII are grossly intact. PSYCHOLOGICAL: The patient is calm and cooperative. SKIN: There is no rashes or abnormalities. DIAGNOSTIC STUDIES/LABORATORY DATA: Sodium 134, potassium 4.3, chloride 100, CO2 of 28, BUN 15, creatinine 1.12, glucose 88. Magnesium 2.1. Troponin 0.00. TSH 1.57. Serum alcohol less than 10. White blood cell count 11.2, hemoglobin 15.5, hematocrit 45, platelet count 228,000. EKG shows a sinus rhythm with a rate of 66. EKG shows no acute signs of ischemia and is similar to previous from 04/16/16. Chest x-ray from today. Radiologist's impression: No active disease. Head CT from today. Radiologist's impression: No active intracranial findings , right side sinusitis unchanged from 04/16/16. IMPRESSION: Mr. Ko is a 72-year-old male with past medical history significant for dementia, hyperlipidemia, prostate cancer, depression, and eczema, who presents to the emergency room with altered mental status and confusion. He will be admitted as observation for altered mental status, rule out transient ischemic attack. ASSESSMENT/PLAN: 1. Altered mental status. Although this could represent a transient ischemic attack or transient global amnesia, this appears to most likely be advancing dementia. This could also represent seizure activities. We will check an EEG. We will also get an MRI and check carotid ultrasounds in the morning. We will get a fasting lipid panel on him also in the morning. At this time, there appears to be no signs of infection. His urinalysis is pending. Chest x-ray is negative. The patient has been seen in consultation by Dr. Cruz with Neurology while in the emergency room. 2. Right-sided sinusitis. This appears to be a chronic problem. The patient denies sinus tenderness. He is afebrile and only has a mild leukocytosis. I am going to hold on any antibiotics, again as I feel this is a chronic issue. 3. Dementia. The patient will be continued on his home Namenda. 4. Depression. The patient will be continued on his home Lexapro. 5. Fluids, electrolytes, and nutrition. The patient will be on a heart- healthy diet. 6. Code status. Full code. 7. DVT prophylaxis. He is at a moderate risk and will have subcu heparin. 8. Disposition. Observation. TIME SPENT: Time for this admission was approximately 60 minutes, greater than half of that spent with the patient and his discussing medications, past medical history and the events leading up to his arrival today, performing a physical examination. The case has been reviewed with the attending, Dr. Saavedra , who agrees with the plan of care. GERMANIA DIXON, RICARDA [id number]/[facility] #: [id number] REJI
[2017-04-26] MEDS: Heparin VIAL(*) 5000 UNITS/ML VIAL (FIVE THOUSAND) SUBCUT SCH ×2 (05:15→14:32)
[2017-04-26 07:32] LABS: ABS Basophils 0 10^3/ul (0-0.2); ABS Eosinophils 0.3 10^3/ul (0-0.6); ABS Lymphocytes 2.4 10^3/ul (1.0-4.8); ABS Monocytes 0.6 10^3/ul (0-0.8); ABS Neutrophils 4.2 10^3/ul (1.5-7.7); ABS Nucleated RBC 0 10^3/ul; Eosinophil % 4.1 % (0-6); Hematocrit 46 % (42-52); Hemoglobin 15.8 g/dl (14.0-18.0); Lymphocyte % 32.2 % (25-47); Mean Corpuscular HGB Conc 34 g/dl (31-36); Mean Corpuscular Hemoglobin 31 pg (27-31); Mean Corpuscular Volume 91 fL (80-94); Mean Platelet Volume 9 um3 (7.4-10.4); Nucleated Red Blood Cells % 0.2; Platelet Count 238 10^3/ul (150-450); Red Blood Count 5.07 10^6/ul (4.0-5.4); Red Cell Distribution Width 13 % (10.5-15); White Blood Count 7.5 10^3/ul (3.5-10.8)
[2017-04-26] MEDS ORDERED: Memantine XR CAP* 28 MG CAP.XR PO SCH (09:00)
[2017-04-26] MEDS ORDERED: Cholecalciferol TAB* 1000 UNITS PO SCH (09:00)
[2017-04-26] MEDS ORDERED: Amoxicillin/Clavulanate TAB* 875 MG PO SCH (09:00)
[2017-04-26] MEDS ORDERED: CMCS: Escitalopram (NF) 10 MG TAB PO SCH (09:00)
[2017-04-26] MEDS ORDERED: Aspirin Low Dose CHEW TAB* 81 MG PO SCH (09:00)
--- NOTE | 2017-04-26 16:37 | PN ---
Subjective Date of Service: 04/26/17 Interval History: Patient seen and examined at bedside. Denies fever, chills, shortness of breath , chest discomfort, N/V/D. Tele: Sinus rhythm, rate 60s. Family History: Unchanged from Admission Social History: Unchanged from Admission Past Medical History: Unchanged from Admission Objective Active Medications: Aspirin (Aspirin Low Dose Tab*) 81 mg PO DAILY [facility] Cholecalciferol (Vitamin D Tab*) 1,000 units PO DAILY [facility] Escitalopram Oxalate (Lexapro (Nf)) 20 mg PO DAILY [facility] Heparin Sodium (Porcine) (Heparin Vial(*)) 5,000 units SUBCUT Q8HR [facility] Memantine (Namenda Xr Cap*) 28 mg PO DAILY [facility] Vital Signs - 8 hr 04/26/17 11:23 Temperature 98.0 F Pulse Rate 59 Respiratory 18 Rate Blood Pressure 124/71 (mmHg) O2 Sat by Pulse 96 Oximetry Oxygen Devices in Use Now: None Appearance: NAD, sitting in a chair Ears/Nose/Mouth/Throat: Mucous Membranes Moist Respiratory: Symmetrical Chest Expansion and Respiratory Effort, Clear to Auscultation Cardiovascular: NL Sounds; No Murmurs; No JVD, RRR Abdominal: NL Sounds; No Tenderness; No Distention Extremities: No Edema Skin: No Rash or Ulcers Neurological: Alert and Oriented x 3 - , forgetful, NL Muscle Strength and Tone Lines/Tubes/Other Access: Clean, Dry and Intact Peripheral IV - site benign Nutrition: Taking PO's Result Diagrams: 04/26/17 07:11 04/25/17 16:30 Assess/Plan/Problems-Billing Assessment: Mr. Ko is a 72 yo male with PMH significant for dementia, HLD, prostate CA, depression and eczema who presented to the emergency room with acute confusion. - Patient Problems (1) Confusion Code(s): R41.0 - DISORIENTATION, UNSPECIFIED SNOMED Code(s): 471818441 Comment: - Suspect this is worsening dementia, but may also be an episode of TGA - Neurology consult, input appreciated - Continue supportive care (2) HLD (hyperlipidemia) Code(s): E78.5 - HYPERLIPIDEMIA, UNSPECIFIED SNOMED Code(s): 30305807 Comment: - LDL 208 and cholesterol 280 - ASCVD risk score 22.1% - Pt's states that statins make his memory worse - Declining statin treatment at this time (3) Sinusitis Code(s): J32.9 - CHRONIC SINUSITIS, UNSPECIFIED SNOMED Code(s): 10162166 Comment: - This appears to be chronic - Denies sinus tenderness, afebrile and leukocytosis resolved (4) Depression Code(s): F32.9 - MAJOR DEPRESSIVE DISORDER, SINGLE EPISODE, UNSPECIFIED SNOMED Code(s): 10074304 Comment: - Continue Lexapro (5) Dementia Code(s): F03.90 - UNSPECIFIED DEMENTIA WITHOUT BEHAVIORAL DISTURBANCE SNOMED Code(s): 65437673 Comment: - Supportive care - Continue Namenda (6) DVT prophylaxis Code(s): WWN6086 - SNOMED Code(s): 799803966 Comment: - SQ heparin (7) Full code status Code(s): Z78.9 - OTHER SPECIFIED HEALTH STATUS SNOMED Code(s): 909638025 Status and Disposition: OBV. Stable for discharge to home today.
[2017-04-26 16:57] VITALS: BP 126/71
--- NOTE | 2017-04-26 21:18 | CONS ---
CC: Dr. Mckay * NEUROLOGY FOLLOWUP CONSULTATION: DATE OF CONSULT: 04/26/17 LOCATION: He is an inpatient in room 450. PRIMARY CARE PHYSICIAN: Dr. Bishop. CHIEF COMPLAINT: Confusional episode and disorientation. INTERVAL HISTORY: Since yesterday, Mr. Ko is apparently back at his baseline. He is accompanied by his and daughter in room this afternoon. He is able to recall that he had difficulty finding the dentist's office and after that had difficulty finding where he had parked his truck. Apparently this went on for upwards of 2 hours. He was brought into the emergency room and evaluated by Dr. Cruz and I reviewed her note. A question of transient global amnesia was raised. He has a history of about 2 years of cognitive decline. It affects mainly short term memory, but also visual spatial skills. For instance, he could not put together some shelving even he had the directions to and had to put it away. He still drives and does not get lost, but he apparently sticks to familiar routes. He has been on Namenda for it sounds like about a year now and his is not sure that she has seen any benefit. He was on statins in the past and those were stopped and she feels there was a definite improvement in his cognition after the statins were stopped. There is no history of head injury. There is no family history of dementia on his side of the family. MEDICATIONS: Reviewed and he is on: 1. Memantine XR 28 mg p.o. every day. 2. Lexapro 20 mg p.o. every day. 3. Vitamin D 1000 units p.o. every day. 4. Aspirin 81 mg p.o. every day. 5. Subcutaneous heparin 5000 units every 8 hours. ALLERGIES: He has listed is having allergy to PENICILLIN. PHYSICAL EXAM: He has been afebrile, most recently 98.0 orally. Blood pressures running about 116 to 124 systolic/60 to 70 diastolic. Heart rate is running around 60. On exam, heart is in a regular rate and rhythm with a grade 1/6 early systolic murmur right upper sternal border. There are no cervical bruits. Lungs are clear bilaterally. Eye movements are full. Facial musculature is symmetrical without hypomimia. Speech is clear without hypophonia. Muscle tone is normal in the limbs. There is no rest tremor. He is alert and very pleasant, cooperative gentleman. He loses his train of thought and some times starts speaking about other subjects in the middle of conversation. I did not do formal mental status testing today. DIAGNOSTIC STUDIES/LAB DATA: Since yesterday is notable for lipid profile with a cholesterol of 280 and LDL 210. Vitamin B12 normal at 389 and TSH 1.57. CBC this morning is within normal limits, white blood cell count is down to 7.5 from 11.2 yesterday. MRI of the brain is reviewed and reveals atrophy, but is otherwise unremarkable MRI of the brain. There are a few very small nonspecific white matter lesions consistent with chronic ischemic changes. He had an EEG earlier today, which I reviewed and looks to be a normal EEG. There are no epileptiform discharges. He had a carotid ultrasound study yesterday, interpretation: Mild atherosclerotic changes, but no stenosis. IMPRESSION: Is that of probable slowly progressive Alzheimer's disease. Although, it is conceivable he had an episode of transient global amnesia on top of it, it is more likely he just became disoriented and very anxious and confused. We had a long talk about the difference between dementia and Alzheimer's disease , prognosis, different cognitive symptoms of Alzheimer's disease, medications such as cholinesterase inhibitors and Namenda and that they may improve symptoms , but in some instances may make the patient worse. Also that they do not slow progression of disease. We also discussed his Celexa which is being used for anxiety and whether or not that is an effective dose or ineffective medication. We will discuss this with their primary and with Dr. Mckay who has been following him previously. [id number]/[facility] #: [id number] [facility] HOSPITALChris
--- NOTE | 2017-04-27 12:19 | EEG ---
ELECTROENCEPHALOGRAPHY: DATE OF STUDY: 04/26/17 He is an inpatient in room 450. REFERRING PROVIDER: Leti Trejo NP. CLINICAL HISTORY: Episodes of amnesia and disorientation. MEDICATIONS: Include: 1. Lexapro. 2. Namenda. 3. Escitalopram. 4. Vitamin D. 5. Aspirin 81 mg. REPORT: This 16-channel EEG is remarkable for background rhythms consisting of well-formed alpha rhy thm in the occipital derivations at about 9 cycles per second, which is symmetric. Moderate voltage beta rhythms are seen bifrontally and to some extent centrally. Occasionally bitemporal theta rhythm s are noted. Activation procedures are not attempted. Late in the tracing there were some vertex sl owing and some rudimentary sleep spindles consistent with stage II sleep. There are no focal, latera lized, or epileptiform abnormalities. INTERPRETATION: Normal awake and asleep EEG. [id number]/[facility] #: [id number]
--- NOTE | 2017-04-27 16:29 | DS ---
CC: Dr. Enrike Mckay; Dr. Dario Bishop * DISCHARGE SUMMARY: DATE OF ADMISSION: 04/25/17 DATE OF DISCHARGE: 04/26/17 ATTENDING PHYSICIAN: Dr. Betsy Leal (dictated by Germania Dixon NP). PRIMARY CARE PROVIDER: Dr. Dario Bishop. NEUROLOGIST: Dr. Enrike Mckay. PRIMARY DIAGNOSIS: Suspected slowly progressive Alzheimer's disease. SECONDARY DIAGNOSES: 1. Hyperlipidemia. 2. Prostate cancer. 3. Depression. 4. Eczema. CONSULTATIONS WHILE IN THE HOSPITAL: Dr. Whitney Cruz and Dr. Marty Soto with Neurology. STUDIES WHILE IN THE HOSPITAL: 1. Brain CT from 04/25/17. Radiologist's impression: No active intracranial findings, right side sinusitis unchanged from 04/16/16. 2. Chest x-ray from 04/25/17. Radiologist's impression: No active disease. 3. Brain MRI from 04/25/17. Radiologist's impression: No acute intracranial findings. Moderate cortical involutional changes. Sinusitis. 4. Bilateral carotid Doppler studies on 04/25/17. Radiologist's impression: No evidence of a hemodynamically significant stenosis. 5. Electroencephalogram official report pending at the time of this dictation, but according to Dr. Soto's note, this was a normal EEG. DISCHARGE MEDICATIONS: Continued home medications: 1. Namenda XR 28 mg oral daily. 2. Vitamin D 1000 units oral daily. 3. Aspirin 81 mg oral daily. 4. Lexapro 20 mg oral daily. HISTORY OF PRESENT ILLNESS/HOSPITAL COURSE: Mr. Ko is a 72-year-old man with past medical history significant for dementia, hyperlipidemia, prostate cancer, and depression, who was in his usual state of health on the day of admission when he left his house to go to a dentist's appointment. The patient was way to the dentist's office and his had noted a call, reminding him of the appointment, his appointment was supposed to be at 11:30 am. At around 3 p.m., she received a call from the dentist's office stating that they have noticed him wandering around outside and he had left the dentist's office somewhere between 12 and 12:30. He seemed confused and they decided to bring him to the emergency room. The patient's notes that over the last 2 years , she has noted that he is becoming more confused and forgetful. They felt initially as though his symptoms were secondary to stress due to his job and felt it would better when he retired. When he first retired, he had signs of depression with sleeping a lot, but he is recently becoming more active and adjusting to being retired. It is to know he also had a similar episode approximately a year ago, where he was disoriented and seemed to have diminished memory. At that time, he had a workup for a TIA that was essentially negative. While in the emergency room, the patient had unremarkable labs and no significant findings. He was noted to have a mild leukocytosis and possible sinusitis on CT scan, although this is unchanged from imaging a year prior. He was seen in consultation by Dr. Cruz with Neurology in the emergency room and the hospitalists were asked to evaluate the patient for admission. While in the hospital, the patient seemed to have returned to his baseline cognition, although he continued to have poor short-term memory. He is able to recall his events of not being able to find the dentist yesterday and having difficulty finding where he had parked. He had an MRI today showing no acute findings in addition to an EEG showing essentially normal EEG. His mild leukocytosis resolved. He had a fasting lipid profile notable for cholesterol of 280 and an LDL of 210. He was seen in consultation by Dr. Soto today, who felt that he most likely had a slowly progressive Alzheimer's disease, although it could be possible that he had transient global amnesia on top of that or more likely that he just became oriented and very anxious and that increased his confusion contributing to the increased confusion episode yesterday. Mr. Ko is stable for discharge to home today. Vital signs are as follows: Temperature 98.1, heart rate 62, respiratory rate 15, O2 sat 97% on room air, blood pressure 126/71. DISCHARGE PLAN: Mr. Ko will be discharged to home, activity as tolerated. He has been encouraged to be cautious with driving and that he consider not driving alone especially if he is driving unfamiliar route. As far as his driving he could have a formal road test to evaluate his safety for driving. As far as his acute confusion and likely slowly progressive Alzheimer's disease , for now, he will be continued on his home Namenda and should discuss further with Neurology outpatient about possibly coming off the Namenda and maybe even adjusting his Celexa. He should be seen in followup by Neurology in the next few months. He should call Dr. Mckay's office to set up an appointment. He should be seen sooner if he has any further confusion episodes. He should be seen in followup by his primary care provider due to him going out of town on a trip with his . He will be unable to have a followup until previously scheduled appointment with Dr. Bishop on 05/15/17 at 9:40 a.m. He has been asked to return to the emergency room for any shortness of breath, chest pain, or stroke symptoms. Points of discussion at discharge followup, please consider discussing with the patient about cholesterol lowering agents as the patient's cholesterol was 280 and his LDL is 208. The patient's ASCVD score is 22.1%. At this time, they are reluctant to start on medications as they felt in the past statins had worsened his memory. I have encouraged them to eat a healthy diet, please continue to encourage that. Also, please continue to discuss with the patient about driving as he may not be safe to be driving and continue to eval his safety for driving. This is a summarized report of a complex medical history and hospitalization. For further details, please see the entire medical record. GERMANIA DIOXN, RICARDA [id number]/[facility] #: [id number] REJI
== END 2017-04-26 17:15 | disposition home or self-care (01) ==
LOC: ED 15:36 → MEDTELE 17:59
PROVIDERS: ADMIT Hospitalist; ATTEND Nurse Practitioner
DX: G30.9 Alzheimer's disease, unspecified (principal); F02.80 Dementia in other diseases classified elsewhere, unspecified severity, without behavioral disturbance, psychotic disturbance, mood disturbance, and anxiety; J32.9 Chronic sinusitis, unspecified; E78.5 Hyperlipidemia, unspecified; Z85.46 Personal history of malignant neoplasm of prostate; F32.9 Major depressive disorder, single episode, unspecified; L30.9 Dermatitis, unspecified; I65.29 Occlusion and stenosis of unspecified carotid artery; Z79.899 Other long term (current) drug therapy; Z79.82 Long term (current) use of aspirin; Z88.0 Allergy status to penicillin
CPT/HCPCS: 36415; 70450; 70551; 71045; 80053; 80061; 80320; 81003; 82607; 83605; 83735; 84443; 84484; 85025; 85610; 87040; 93005; 93880; 95819; 96372; A9270-GY; G0378; G0480; J1644

== ENCOUNTER 2018-03-28 10:14 | Emergency (ER) | payer MEDICARE, BC ==
[2018-03-28 10:27] VITALS: BP 122/77
--- NOTE | 2018-03-28 10:48 | UC ---
Skin Complaint HPI - HPI Summary HPI Summary: 73-year-old male comes to clinic today with a chief complaint of rash in his right armpit. He shows with about 3 days ago. He did not see a tick at that time. The rash is spread and is common in today says he doesn't feel well but there is no fevers recorded. The rash does not hurt. The rash been spreading have not tried anything topical. - History of Current Complaint Chief Complaint: UCSkin Time Seen by Provider: 03/28/18 10:37 Stated Complaint: BUG BITE Pain Intensity: 0 - Allergy/Home Medications Allergies/Adverse Reactions: Allergies Allergy/AdvReac Type Severity Reaction Status Date / Time atorvastatin Allergy Altered Verified 03/28/18 10:22 Mental Status Egg Derived Allergy Unknown Verified 03/28/18 10:22 Reaction Details Penicillins Allergy Hives Verified 03/28/18 10:22 PMH/Surg Hx/FS Hx/Imm Hx Psychological History: Other - DEMENTIA - Surgical History Surgical History: Yes Surgery Procedure, Year, and Place: prostate removal, R arm artery and nerve repair - Family History Known Family History: Positive: Cardiac Disease, Other - TIA, hypotension - Social History Alcohol Use: Occasionally Alcohol Amount: 1 glass of wine and 1gin and tonic daily Substance Use Type: None Smoking Status (MU): Never Smoked Tobacco Review of Systems All Other Systems Reviewed And Are Negative: Yes Constitutional: Positive: Negative Skin: Positive: Rash Eyes: Positive: Negative ENT: Positive: Negative Respiratory: Positive: Negative Cardiovascular: Positive: Negative Gastrointestinal: Positive: Negative Motor: Positive: Negative Neurovascular: Positive: Negative Musculoskeletal: Positive: Negative Neurological: Positive: Negative Psychological: Positive: Negative Is Patient Immunocompromised?: No Physical Exam Triage Information Reviewed: Yes Appearance: Well-Appearing, No Pain Distress, Well-Nourished Vital Signs: Initial Vital Signs Temp 98 F 03/28/18 10:24 Pulse 56 03/28/18 10:24 Resp 16 03/28/18 10:24 BP 122/77 03/28/18 10:24 Pulse Ox 100 03/28/18 10:24 Vital Signs Reviewed: Yes Eye Exam: Normal Eyes: Positive: Conjunctiva Clear Neck exam: Normal Neck: Positive: Supple Respiratory: Positive: Lungs clear, Normal breath sounds, No respiratory distress Cardiovascular: Positive: RRR Musculoskeletal Exam: Normal Musculoskeletal: Positive: Strength Intact, ROM Intact Neurological Exam: Normal Neurological: Positive: Alert, Muscle Tone Normal Psychological Exam: Normal Psychological: Positive: Age Appropriate Behavior Skin: Positive: Other - In the right axilla there is a bull's-eye rash that is an centimeters in diameter. No foreign body or tick seen. Course/Dx - Course Course Of Treatment: THE cellulitis in the right arm has a bull's-eye appearance. Therefore I will treat it as Lyme with doxycycline 100 mg twice a day for 14 days. He is to follow-up his primary care doctor's to get reevaluated sooner if he feels ill or he gets worse. - Diagnoses Provider Diagnosis: Cellulitis, Lyme disease Discharge - Sign-Out/Discharge Documenting (check all that apply): Patient Departure All imaging exams completed and their final reports reviewed: No Studies - Discharge Plan Condition: Stable Disposition: HOME Prescriptions: DOXYcycline CAP(*) [DOXYcycline 100MG CAP(*)] 100 mg PO BID #28 cap Patient Education Materials: Cellulitis (ED), Lyme Disease (ED) Referrals: Dario Bishop MD [Primary Care Provider] - Additional Instructions: FOLLOW UP WITH YOUR DOCTOR. GO TO THE EMERGENCY DEPARTMENT FOR ANY WORSENING OF YOUR CONDITION; FEVER, YOU FEEL ILL OR QUESTIONS OR CONCERNS. - Billing Disposition and Condition Condition: STABLE Disposition: Home
== END 2018-03-28 11:00 | disposition home or self-care (01) ==
LOC: UCEAST 10:14
DX: L03.113 Cellulitis of right upper limb (principal); A69.20 Lyme disease, unspecified; Z88.0 Allergy status to penicillin; Z88.8 Allergy status to other drugs, medicaments and biological substances
CPT/HCPCS: 99212; G0463

== ENCOUNTER 2020-12-23 19:30 | Inpatient (IN) ==
[2020-12-23 20:17] LABS: ABS Eosinophils 0.2 10^3/ul (0-0.6); ABS Lymphocytes 1.8 10^3/ul (1.0-4.8); ABS Monocytes 0.6 10^3/ul (0-0.8); ABS Neutrophils 6.1 10^3/ul (1.5-7.7); Eosinophil % 1.7 %; Hematocrit 43 % (42-52); Hemoglobin 14.7 g/dL (14.0-18.0); Lymphocyte % 21.1 %; Mean Corpuscular HGB Conc 34 g/dL (31-36); Mean Corpuscular Hemoglobin 31 pg (27-31); Mean Corpuscular Volume 90 fL (80-94); Mean Platelet Volume 9.4 fL (7.4-10.4); Platelet Count 191 10^3/uL (150-450); Red Blood Count 4.77 10^6 /uL (4.18-5.48); Red Cell Distribution Width 13 % (10-15); White Blood Count 8.7 10^3/uL (3.5-10.8)
[2020-12-23 20:45] LABS: ALT 38 U/L (7-52); AST 35 U/L (13-39); Albumin 4.3 g/dL (3.2-5.2); Albumin/Globulin Ratio 1.7 (1-3); Alkaline Phosphatase 109 U/L (35-149); Anion Gap 8 mmol/L (2-11); Blood Urea Nitrogen 18 mg/dL (6-24); CO2 Carbon Dioxide 28 mmol/L (22-32); Calcium 9.4 mg/dL (8.6-10.3); Chloride 103 mmol/L (101-111); EGFR African American 63.4 (>60); EGFR Non-African American 52.4 (>60); Globulin 2.6 g/dL (2-4); Glucose 95 mg/dL (70-100); Sodium 139 mmol/L (135-145); Total Protein 6.9 g/dL (6.4-8.9)
[2020-12-23 20:48] LABS: Alcohol, S < 13 mg/dL (<13)
[2020-12-23] MEDS ORDERED: NS 0.9% 1000 ml BAG 1,000 ML IV ONE (20:49)
[2020-12-23 20:55] LABS: Urine Appearance Clear; Urine Bilirubin Negative (Negative); Urine Blood Negative (Negative); Urine Color Yellow; Urine Glucose Negative (Negative); Urine Ketones Negative (Negative); Urine Nitrite Negative (Negative); Urine Protein Negative (Negative); Urine Specific Gravity 1.023 (1.002-1.030); Urine Urobilinogen Negative (Negative)
[2020-12-23 21:03] LABS: TSH Ultra Thyroid Stim Horm 2.89 mcIU/mL (0.34-5.60)
[2020-12-23] MEDS ORDERED: Magnesium Hydroxide LIQ 30 ML UDC PO PRN (21:11)
[2020-12-23] MEDS ORDERED: Senna TAB 8.6 mg TAB PO PRN (21:16)
[2020-12-24 06:42] LABS: Calcium 9.1 mg/dL (8.6-10.3); EGFR African American 74.3 (>60); EGFR Non-African American 61.4 (>60)
[2020-12-26] MEDS ORDERED: Haloperidol 5 mg/ml SDV IV/IM 5 MG/ML AMP IM ONE (19:30)
[2020-12-26] MEDS ORDERED: Haloperidol 5 mg/ml SDV IV/IM 5 MG/ML AMP ONE (19:31)
[2020-12-27 08:26] VITALS: BP 125/64
== END 2020-12-27 11:50 | disposition home or self-care (01) | DRG 683 ==
LOC: MEDTELE 19:30 → ED 19:30 → SUATTDRO 21:11
PROVIDERS: ADMIT Hospitalist; ATTEND Hospitalist

== ENCOUNTER 2021-01-19 23:07 | Inpatient (IN) ==
[2021-01-19 23:59] LABS: Alcohol, S < 13 mg/dL (<13)
[2021-01-20 00:01] LABS: ALT 86 U/L (7-52); AST 67 U/L (13-39); Albumin 3.7 g/dL (3.2-5.2); Albumin/Globulin Ratio 1.4 (1-3); Alkaline Phosphatase 84 U/L (35-149); Anion Gap 7 mmol/L (2-11); Blood Urea Nitrogen 35 mg/dL (6-24); CO2 Carbon Dioxide 26 mmol/L (22-32); Calcium 9.5 mg/dL (8.6-10.3); Chloride 111 mmol/L (101-111); Globulin 2.7 g/dL (2-4); Glucose 118 mg/dL (70-100); Magnesium 2.1 mg/dL (1.9-2.7); Potassium 4.3 mmol/L (3.5-5.0); Sodium 144 mmol/L (135-145); Total Protein 6.4 g/dL (6.4-8.9)
[2021-01-20 00:03] LABS: Troponin I 0.01 ng/mL (<0.03)
[2021-01-20 00:15] LABS: TSH Ultra Thyroid Stim Horm 1.55 mcIU/mL (0.34-5.60)
[2021-01-20 00:26] LABS: ABS Basophils 0.1 10^3/ul (0-0.2); ABS Eosinophils 0.2 10^3/ul (0-0.6); ABS Lymphocytes 1.6 10^3/ul (1.0-4.8); ABS Monocytes 0.8 10^3/ul (0-0.8); Eosinophil % 2.4 %; Hematocrit 38 % (42-52); Hemoglobin 12.9 g/dL (14.0-18.0); Lymphocyte % 21.7 %; Mean Corpuscular HGB Conc 34 g/dL (31-36); Mean Corpuscular Hemoglobin 31 pg (27-31); Mean Corpuscular Volume 92 fL (80-94); Mean Platelet Volume 8.9 fL (7.4-10.4); Nucleated Red Blood Cells % 0.1; Platelet Count 209 10^3/uL (150-450); Red Blood Count 4.13 10^6 /uL (4.18-5.48); Red Cell Distribution Width 14 % (10-15); White Blood Count 7.6 10^3/uL (3.5-10.8)
[2021-01-20 01:46] LABS: Urine Appearance Clear; Urine Bilirubin Negative (Negative); Urine Blood Negative (Negative); Urine Color Amber; Urine Glucose Negative (Negative); Urine Ketones Negative (Negative); Urine Nitrite Negative (Negative); Urine Protein Negative (Negative); Urine Specific Gravity 1.028 (1.002-1.030); Urine Urobilinogen Positive (Negative)
[2021-01-20 01:55] LABS: Urine Benzodiazepine Screen None Detected (None Detect); Urine Cannabinoids Screen None Detected (None Detect); Urine Opiates Screen None Detected (None Detect)
[2021-01-20] MEDS ORDERED: Lactated Ringers 1000 ml BAG 1,000 ML IV ONE ×2 (05:27→12:17)
[2021-01-20] MEDS ORDERED: NS 0.9% 1000 ml BAG 1,000 ML IV SCH (08:30)
[2021-01-20 09:17] LABS: C Reactive Protein 6.86 mg/L (<8.01)
[2021-01-20 09:31] LABS: Rapid COVID-19 Molecular Undetected (Undetected)
[2021-01-20] MEDS ORDERED: Magnesium Hydroxide LIQ 30 ML UDC PO PRN (09:49)
[2021-01-20 10:20] LABS: % Iron Saturation 19 % (15-55); Iron 58 ug/dL (50-212); Total Iron Binding Capacity 301 mcg/dL (250-450); Transferrin 215 mg/dL (203-362); Unsaturated Iron Binding < 286 ug/dL
[2021-01-20] MEDS: Enoxaparin 40 MG/0.4 ML SYR SUBCUT SCH (10:32)
[2021-01-20 10:36] LABS: Creatine Kinase 598 U/L (10-223)
[2021-01-20 10:42] LABS: Ferritin 153.7 ng/mL (24-336)
[2021-01-20 10:46] LABS: Folate 15.35 ng/mL (5.90-24.80)
[2021-01-20 10:47] LABS: Vitamin B12 1216 pg/mL (180-914)
[2021-01-20] MEDS ORDERED: Lactated Ringers 1000 ml BAG 1,000 ML IV SCH (23:45)
[2021-01-21 05:06] LABS: ABS Eosinophils 0.2 10^3/ul (0-0.6); ABS Lymphocytes 1.4 10^3/ul (1.0-4.8); ABS Monocytes 0.6 10^3/ul (0-0.8); Eosinophil % 3.2 %; Hematocrit 37 % (42-52); Hemoglobin 12.6 g/dL (14.0-18.0); Lymphocyte % 18.9 %; Mean Corpuscular HGB Conc 34 g/dL (31-36); Mean Corpuscular Hemoglobin 31 pg (27-31); Mean Corpuscular Volume 91 fL (80-94); Mean Platelet Volume 8.8 fL (7.4-10.4); Platelet Count 197 10^3/uL (150-450); Red Blood Count 4.07 10^6 /uL (4.18-5.48); Red Cell Distribution Width 13 % (10-15); White Blood Count 7.2 10^3/uL (3.5-10.8)
[2021-01-21 05:25] LABS: Albumin 3.4 g/dL (3.2-5.2); Albumin/Globulin Ratio 1.5 (1-3); Calcium 8.2 mg/dL (8.6-10.3); Globulin 2.2 g/dL (2-4); Potassium 3.8 mmol/L (3.5-5.0); Total Bilirubin 1.1 mg/dL (0.2-1.0); Total Protein 5.6 g/dL (6.4-8.9)
[2021-01-21] MEDS: Enoxaparin 40 MG/0.4 ML SYR SUBCUT SCH (08:56)
[2021-01-22 06:58] LABS: Albumin 3.3 g/dL (3.2-5.2); Albumin/Globulin Ratio 1.4 (1-3); Calcium 8.6 mg/dL (8.6-10.3); Globulin 2.3 g/dL (2-4); Potassium 3.8 mmol/L (3.5-5.0); Total Bilirubin 0.9 mg/dL (0.2-1.0); Total Protein 5.6 g/dL (6.4-8.9)
[2021-01-22] MEDS: Enoxaparin 40 MG/0.4 ML SYR SUBCUT SCH (09:48)
[2021-01-22 10:51] LABS: Urine Appearance Cloudy; Urine Bilirubin Negative (Negative); Urine Blood Negative (Negative); Urine Color Yellow; Urine Glucose Negative (Negative); Urine Ketones Trace (Negative); Urine Nitrite Negative (Negative); Urine Protein Negative (Negative); Urine Specific Gravity 1.017 (1.002-1.030); Urine Urobilinogen Positive (Negative)
[2021-01-22] MEDS ORDERED: Magnesium Hydroxide LIQ 30 ML UDC PO PRN (15:34)
[2021-01-22] MEDS: Docusate LIQ 100 MG/10 ML UDC PO SCH (19:50)
[2021-01-23] MEDS: Docusate LIQ 100 MG/10 ML UDC PO SCH ×2 (09:13→23:00)
[2021-01-23] MEDS: Enoxaparin 40 MG/0.4 ML SYR SUBCUT SCH (09:14)
[2021-01-23] MEDS: Senna TAB 8.6 mg TAB PO PRN (23:00)
[2021-01-24] MEDS: Docusate LIQ 100 MG/10 ML UDC PO SCH ×2 (10:21→19:56)
[2021-01-24] MEDS: Enoxaparin 40 MG/0.4 ML SYR SUBCUT SCH (10:30)
[2021-01-25 05:22] LABS: ABS Eosinophils 0.4 10^3/ul (0-0.6); ABS Lymphocytes 1.5 10^3/ul (1.0-4.8); ABS Monocytes 0.6 10^3/ul (0-0.8); ABS Neutrophils 4.3 10^3/ul (1.5-7.7); Eosinophil % 5.2 %; Hematocrit 38 % (42-52); Hemoglobin 13.2 g/dL (14.0-18.0); Lymphocyte % 22.1 %; Mean Corpuscular HGB Conc 34 g/dL (31-36); Mean Corpuscular Hemoglobin 31 pg (27-31); Mean Corpuscular Volume 92 fL (80-94); Mean Platelet Volume 9.4 fL (7.4-10.4); Platelet Count 230 10^3/uL (150-450); Red Blood Count 4.19 10^6 /uL (4.18-5.48); Red Cell Distribution Width 13 % (10-15); White Blood Count 6.8 10^3/uL (3.5-10.8)
[2021-01-25 05:38] LABS: ALT 65 U/L (7-52); AST 48 U/L (13-39); Albumin 3.4 g/dL (3.2-5.2); Albumin/Globulin Ratio 1.4 (1-3); Alkaline Phosphatase 90 U/L (35-149); Anion Gap 7 mmol/L (2-11); Blood Urea Nitrogen 23 mg/dL (6-24); CO2 Carbon Dioxide 24 mmol/L (22-32); Calcium 8.5 mg/dL (8.6-10.3); Chloride 106 mmol/L (101-111); Globulin 2.5 g/dL (2-4); Glucose 86 mg/dL (70-100); Potassium 3.8 mmol/L (3.5-5.0); Sodium 137 mmol/L (135-145); Total Protein 5.9 g/dL (6.4-8.9)
[2021-01-25 05:54] LABS: TSH Ultra Thyroid Stim Horm 2.78 mcIU/mL (0.34-5.60)
[2021-01-25 06:05] LABS: Folate 13.76 ng/mL (5.90-24.80)
[2021-01-25 06:06] LABS: Vitamin B12 > 1450 pg/mL (180-914)
[2021-01-25] MEDS: Docusate LIQ 100 MG/10 ML UDC PO SCH ×2 (08:31→19:49)
[2021-01-25] MEDS: Enoxaparin 40 MG/0.4 ML SYR SUBCUT SCH (10:16)
[2021-01-26] MEDS: Enoxaparin 40 MG/0.4 ML SYR SUBCUT SCH (09:13)
[2021-01-26] MEDS: Docusate LIQ 100 MG/10 ML UDC PO SCH ×2 (09:14→20:48)
[2021-01-26] MEDS ORDERED: NS 0.9% 1000 ml BAG 1,000 ML IV ONE (10:52)
[2021-01-27 06:24] LABS: Albumin 3.9 g/dL (3.2-5.2); Albumin/Globulin Ratio 1.3 (1-3); Calcium 9.4 mg/dL (8.6-10.3); Globulin 2.9 g/dL (2-4); Potassium 4.3 mmol/L (3.5-5.0); Total Bilirubin 0.6 mg/dL (0.2-1.0); Total Protein 6.8 g/dL (6.4-8.9)
[2021-01-27] MEDS: Docusate LIQ 100 MG/10 ML UDC PO SCH ×2 (08:15→20:33)
[2021-01-27] MEDS: Enoxaparin 40 MG/0.4 ML SYR SUBCUT SCH (08:38)
[2021-01-27 11:32] LABS: ABS Eosinophils 0.4 10^3/ul (0-0.6); ABS Lymphocytes 1.7 10^3/ul (1.0-4.8); ABS Monocytes 0.5 10^3/ul (0-0.8); ABS Neutrophils 4.1 10^3/ul (1.5-7.7); Eosinophil % 5.3 %; Hematocrit 44 % (42-52); Hemoglobin 14.9 g/dL (14.0-18.0); Lymphocyte % 24.7 %; Mean Corpuscular HGB Conc 34 g/dL (31-36); Mean Corpuscular Hemoglobin 31 pg (27-31); Mean Corpuscular Volume 92 fL (80-94); Mean Platelet Volume 9.4 fL (7.4-10.4); Platelet Count 260 10^3/uL (150-450); Red Blood Count 4.74 10^6 /uL (4.18-5.48); Red Cell Distribution Width 13 % (10-15); White Blood Count 6.7 10^3/uL (3.5-10.8)
[2021-01-27 11:37] LABS: Urine Appearance Turbid; Urine Bilirubin Negative (Negative); Urine Blood 1+ (Negative); Urine Color Amber; Urine Glucose Negative (Negative); Urine Ketones Trace (Negative); Urine Nitrite Negative (Negative); Urine Protein Negative (Negative); Urine Urobilinogen Positive (Negative)
[2021-01-27 11:41] LABS: Urine Bacteria Absent (Absent); Urine Red Blood Cell 2+(6-10/hpf) (Absent); Urine White Blood Cell 1+(6-10/hpf) (Absent)
[2021-01-27] MEDS: NS 0.45% 1000 ml BAG 1,000 ML IV SCH (18:09)
[2021-01-28] MEDS: NS 0.45% 1000 ml BAG 1,000 ML IV SCH (02:23)
[2021-01-28 06:38] LABS: Calcium 9.2 mg/dL (8.6-10.3)
[2021-01-28 08:09] LABS: Albumin 3.8 g/dL (3.2-5.2); Albumin/Globulin Ratio 1.3 (1-3); Direct Bilirubin 0.1 mg/dL (0.03-0.18); Globulin 2.9 g/dL (2-4); Indirect Bilirubin 0.5 mg/dL (0.3-1.0); Total Bilirubin 0.6 mg/dL (0.2-1.0); Total Protein 6.7 g/dL (6.4-8.9)
[2021-01-28] MEDS: Docusate LIQ 100 MG/10 ML UDC PO SCH ×2 (08:58→19:47)
[2021-01-28] MEDS: Enoxaparin 40 MG/0.4 ML SYR SUBCUT SCH (08:59)
[2021-01-29] MEDS: Docusate LIQ 100 MG/10 ML UDC PO SCH ×2 (08:33→20:00)
[2021-01-29] MEDS: Enoxaparin 40 MG/0.4 ML SYR SUBCUT SCH (08:34)
[2021-01-29] MEDS ORDERED: Vancomycin 1,500 MG in NS 0.9% 250 ml 250 ML IVPB ONE (11:50)
[2021-01-29] MEDS ORDERED: Cefepime ADVAN 1 GM in NS 0.9% 50 ML 50 ML IVPB SCH (12:00)
[2021-01-29] MEDS ORDERED: Vancomycin per Pharmacy 1 EA NOTE FOLLOW UP SCH ×2 (12:00)
[2021-01-29] MEDS: cefTRIAXone 1 gm/50 mL NS BAG 1 GM/50 ML BAG IVPB SCH (13:08)
[2021-01-30 09:06] LABS: ABS Eosinophils 0.2 10^3/ul (0-0.6); ABS Lymphocytes 1.6 10^3/ul (1.0-4.8); ABS Monocytes 0.6 10^3/ul (0-0.8); ABS Neutrophils 4.3 10^3/ul (1.5-7.7); Eosinophil % 3.2 %; Hematocrit 41 % (42-52); Hemoglobin 14.5 g/dL (14.0-18.0); Lymphocyte % 23.7 %; Mean Corpuscular HGB Conc 35 g/dL (31-36); Mean Corpuscular Hemoglobin 32 pg (27-31); Mean Corpuscular Volume 92 fL (80-94); Mean Platelet Volume 8.7 fL (7.4-10.4); Platelet Count 228 10^3/uL (150-450); Red Cell Distribution Width 13 % (10-15); White Blood Count 6.7 10^3/uL (3.5-10.8)
[2021-01-30 09:23] LABS: Albumin 3.6 g/dL (3.2-5.2); Albumin/Globulin Ratio 1.3 (1-3); Globulin 2.7 g/dL (2-4); Magnesium 2.1 mg/dL (1.9-2.7); Potassium 3.7 mmol/L (3.5-5.0); Total Bilirubin 0.6 mg/dL (0.2-1.0); Total Protein 6.3 g/dL (6.4-8.9)
[2021-01-30] MEDS: Docusate LIQ 100 MG/10 ML UDC PO SCH ×2 (11:01→21:17)
[2021-01-30] MEDS: Enoxaparin 40 MG/0.4 ML SYR SUBCUT SCH (11:01)
[2021-01-30] MEDS ORDERED: Sodium Phosphate ADULT ENEMA 133 ML BTL PR ONE (11:37)
[2021-01-30] MEDS ORDERED: Polyethylene Glycol 3350 17 GM PACKET PO SCH (12:00)
[2021-01-30] MEDS: cefTRIAXone 1 gm/50 mL NS BAG 1 GM/50 ML BAG IVPB SCH (14:07)
[2021-01-31] MEDS: Enoxaparin 40 MG/0.4 ML SYR SUBCUT SCH (08:58)
[2021-01-31] MEDS: Docusate LIQ 100 MG/10 ML UDC PO SCH ×2 (09:07→21:45)
[2021-01-31 16:02] LABS: Albumin 3.8 g/dL (3.2-5.2); Albumin/Globulin Ratio 1.4 (1-3); Calcium 9.3 mg/dL (8.6-10.3); Globulin 2.7 g/dL (2-4); Potassium 4.3 mmol/L (3.5-5.0); Total Bilirubin 0.4 mg/dL (0.2-1.0); Total Protein 6.5 g/dL (6.4-8.9)
[2021-02-01] MEDS: Enoxaparin 40 MG/0.4 ML SYR SUBCUT SCH (10:39)
[2021-02-01] MEDS: Docusate LIQ 100 MG/10 ML UDC PO SCH ×2 (11:05→22:02)
[2021-02-02] MEDS: Enoxaparin 40 MG/0.4 ML SYR SUBCUT SCH (13:11)
[2021-02-02] MEDS: Docusate LIQ 100 MG/10 ML UDC PO SCH ×2 (13:11→22:26)
[2021-02-03 06:11] LABS: Calcium 9.3 mg/dL (8.6-10.3); Potassium 3.9 mmol/L (3.5-5.0)
[2021-02-03] MEDS: Docusate LIQ 100 MG/10 ML UDC PO SCH ×2 (11:16→23:25)
[2021-02-03] MEDS: Enoxaparin 40 MG/0.4 ML SYR SUBCUT SCH (11:23)
[2021-02-04 06:47] LABS: Albumin 3.8 g/dL (3.2-5.2); Albumin/Globulin Ratio 1.4 (1-3); Calcium 9.1 mg/dL (8.6-10.3); Globulin 2.7 g/dL (2-4); Potassium 3.8 mmol/L (3.5-5.0); Total Bilirubin 0.6 mg/dL (0.2-1.0); Total Protein 6.5 g/dL (6.4-8.9)
[2021-02-04] MEDS: Docusate LIQ 100 MG/10 ML UDC PO SCH ×2 (10:15→22:30)
[2021-02-04] MEDS: Enoxaparin 40 MG/0.4 ML SYR SUBCUT SCH (10:15)
[2021-02-04] MEDS: Senna TAB 8.6 mg TAB PO PRN (23:58)
[2021-02-05] MEDS: Docusate LIQ 100 MG/10 ML UDC PO SCH (08:24)
[2021-02-05] MEDS: Enoxaparin 40 MG/0.4 ML SYR SUBCUT SCH (10:40)
[2021-02-05 12:32] VITALS: BP 119/67
== END 2021-02-05 14:01 | disposition swing bed (61) | DRG 57 ==
LOC: MEDTELE 23:07 → ED 23:07 → OBSVTOIN 01-20 11:12 → SUATTDRO 01-20 11:12 → MEDTELE 01-20 11:33 → MED 01-20 18:19
PROVIDERS: ADMIT Internal Medicine; ATTEND Hospitalist

== ENCOUNTER 2021-02-05 14:16 | Inpatient (IN) ==
[2021-02-05] MEDS ORDERED: Senna TAB 8.6 mg TAB PO PRN (15:27)
[2021-02-05] MEDS ORDERED: Magnesium Hydroxide LIQ 30 ML UDC PO PRN (15:27)
[2021-02-05] MEDS: Docusate LIQ 100 MG/10 ML UDC PO SCH (20:09)
[2021-02-06 07:09] LABS: Calcium 9.1 mg/dL (8.6-10.3)
[2021-02-06 07:32] LABS: Potassium 3.9 mmol/L (3.5-5.0)
[2021-02-06] MEDS: Docusate LIQ 100 MG/10 ML UDC PO SCH ×2 (08:51→19:47)
[2021-02-06] MEDS: Enoxaparin 40 MG/0.4 ML SYR SUBCUT SCH (08:51)
[2021-02-07] MEDS: Enoxaparin 40 MG/0.4 ML SYR SUBCUT SCH (09:40)
[2021-02-08] MEDS: Enoxaparin 40 MG/0.4 ML SYR SUBCUT SCH (09:46)
[2021-02-09 09:47] VITALS: BP 98/83
[2021-02-09] MEDS: Enoxaparin 40 MG/0.4 ML SYR SUBCUT SCH (10:01)
== END 2021-02-09 13:37 | disposition home or self-care (01) | DRG 57 ==
LOC: SUATTDRO 14:16 → MED 14:16
PROVIDERS: ADMIT Hospitalist; ATTEND Internal Medicine